=== PATIENT | male | born 1965 | race Hispanic/Latino ===

== ENCOUNTER 2017-10-27 06:35 | Emergency (ER) | payer MEDICARE, MEDICAID ==
[2017-10-27 06:43] VITALS: BMI 27.9
--- NOTE | 2017-10-27 09:19 | CT ---
PROCEDURE: CT HEAD WITHOUT CONTRAST. HISTORY: ? fall r/o ICH and fx COMPARISON: None available. TECHNIQUE: Axial computed tomography images were obtained through the head/brain without intravenous contrast. Radiation dose: Total exam DLP = 942.89 mGy-cm. This CT exam was performed using one or more of the following dose reduction techniques: Automated exposure control, adjustment of the mA and/or kV according to patient size, and/or use of iterative reconstruction technique. FINDINGS: HEMORRHAGE: No intracranial hemorrhage. BRAIN: Normal bolanos-white matter differentiation and density are appreciated throughout the cerebrum and cerebellum with the brainstem appearing unremarkable as well. There is no mass effect. There is no suspicious extra-axial fluid collection and the midline brain anatomy appears diffusely unremarkable. VENTRICLES: Unremarkable. No hydrocephalus. CALVARIUM: No destructive bony lesion or displaced fracture identified including through the skullbase. PARANASAL SINUSES: Unremarkable as visualized. No significant inflammatory changes. MASTOID AIR CELLS: Unremarkable as visualized. No inflammatory changes. OTHER FINDINGS: None. IMPRESSION: Unremarkable unenhanced head CT. No significant interval change compared to prior head CT dated 04/21/2016.
--- NOTE | 2017-10-27 10:11 | ED PDOC ---
Arrival/HPI - General Chief Complaint: Alcohol Ingestion Time Seen by Provider: 10/27/17 07:12 Historian: Patient, EMS - History of Present Illness Narrative History of Present Illness (Text): 10/27/17 10:08 Rishabh Mckeon is a 52 year old male, with no significant past medical history, was brought in by EMS for public intoxication. Patient was found on the floor. Patient admits to drinking. Patient denies any trauma, fever, chills, chest pain , shortness of breath, diarrhea, back pain, neck pain, headache, dizziness, or any other complaints. Symptom Onset: Gradual Symptom Course: Unchanged Activities at Onset: Light Past Medical History - Provider Review Nursing Documentation Reviewed: Yes - Infectious Disease Hx of Infectious Diseases: None - Tetanus Immunization Tetanus Immunization: Unknown - Reproductive Currently Lactating: No - Cardiac Hx Cardiac Disorders: No - Pulmonary Hx Respiratory Disorders: No - Neurological Hx Neurological Disorder: No - HEENT Hx HEENT Disorder: No - Renal Hx Renal Disorder: No - Endocrine/Metabolic Hx Endocrine Disorders: No - Hematological/Oncological Hx Blood Transfusions: No - Integumentary Hx Dermatological Disorder: No - Musculoskeletal/Rheumatological Hx Musculoskeletal Disorders: Yes (avascular necrosis) Hx Arthritis: Yes Hx Back Pain: Yes - Gastrointestinal Hx Gastrointestinal Disorders: No - Genitourinary/Gynecological Hx Genitourinary Disorders: No - Psychiatric Hx Psychophysiologic Disorder: No Hx Substance Use: No - Surgical History Hx Joint Replacement: Yes (LEFT HIP) Hx Orthopedic Surgery: Yes (BACK SX, LEFT HIP REPLACEMENT) - Anesthesia Hx Anesthesia Reactions: No Hx Malignant Hyperthermia: No - Suicidal Assessment Feels Threatened In Home Enviroment: No Family/Social History - Physician Review Nursing Documentation Reviewed: Yes Family/Social History: Unknown Family HX Smoking Status: Heavy Smoker > 10 Cigarettes Daily Hx Alcohol Use: No Hx Substance Use: No Hx Substance Use Treatment: No Allergies/Home Meds Allergies/Adverse Reactions: Allergies acetaminophen [From Tylenol] Allergy (Verified 10/27/17 06:43) URTICARIA Home Medications: Home Meds Medication Instructions Recorded Confirmed Gabapentin [Neurontin] 300 mg PO TID 11/08/15 10/27/17 Oxymorphone HCl [Opana] 40 mg PO BID 11/08/15 10/27/17 Review of Systems - Physician Review All systems were reviewed & negative as marked: Yes - Review of Systems Constitutional: Normal Eyes: Normal ENT: Normal Respiratory: Normal. absent: SOB, Cough Cardiovascular: Normal. absent: Chest Pain, Palpitations Gastrointestinal: Normal. absent: Abdominal Pain Genitourinary Male: Normal. absent: Dysuria, Frequency, Hematuria, Urinary Output Changes Musculoskeletal: Normal. absent: Back Pain, Neck Pain Skin: Normal. absent: Rash Neurological: Normal. absent: Headache Endocrine: Normal Hemo/Lymphatic: Normal Psychiatric: Normal Physical Exam Vital Signs Reviewed: Yes Vital Signs Temp Pulse Resp BP Pulse Ox 10/27/17 12:00 98.6 F 72 18 135/75 98 10/27/17 10:00 72 18 129/79 98 10/27/17 08:04 67 17 113/74 99 10/27/17 06:47 98.4 F 63 16 145/97 H 97 Temperature: Afebrile Blood Pressure: Normal Pulse: Regular Respiratory Rate: Normal Appearance: Positive for: Well-Appearing, Non-Toxic, Comfortable Pain Distress: None Mental Status: Positive for: Alert and Oriented X 3 - Systems Exam Head: Present: Atraumatic, Normocephalic Pupils: Present: PERRL Extroacular Muscles: Present: EOMI Conjunctiva: Present: Normal Mouth: Present: Moist Mucous Membranes Neck: Present: Normal Range of Motion Respiratory/Chest: Present: Clear to Auscultation, Good Air Exchange. No: Respiratory Distress, Accessory Muscle Use Cardiovascular: Present: Regular Rate and Rhythm, Normal S1, S2. No: Murmurs Abdomen: Present: Normal Bowel Sounds. No: Tenderness, Distention, Peritoneal Signs Back: Present: Normal Inspection Upper Extremity: Present: Normal Inspection. No: Cyanosis, Edema Lower Extremity: Present: Normal Inspection. No: Edema Neurological: Present: GCS=15, CN II-XII Intact, Speech Normal Skin: Present: Warm, Dry, Normal Color. No: Rashes Psychiatric: Present: Alert, Oriented x 3, Normal Insight, Normal Concentration Medical Decision Making ED Course and Treatment: 10/27/17 10:11 Impression: 52 year old male brought in by EMS for public intoxication. Plan: -- Reassess and disposition Progress Notes: - RAD Interpretation Radiology Orders: 10/27/17 07:13 HEAD W/O CONTRAST [CT] Stat - Scribe Statement The provider has reviewed the documentation as recorded by the Laura Reis All medical record entries made by the Scribe were at my direction and personally dictated by me. I have reviewed the chart and agree that the record accurately reflects my personal performance of the history, physical exam, medical decision making, and the department course for this patient. I have also personally directed, reviewed, and agree with the discharge instructions and disposition. Disposition/Present on Arrival - Present on Arrival Any Indicators Present on Arrival: No History of DVT/PE: No History of Uncontrolled Diabetes: No Urinary Catheter: No History of Decub. Ulcer: No History Surgical Site Infection Following: None - Disposition Have Diagnosis and Disposition been Completed?: Yes Diagnosis: Alcohol intoxication Disposition: HOME/ ROUTINE Disposition Time: 12:30 Condition: IMPROVED Discharge Instructions (ExitCare): Alcohol Abuse and Alcoholism (DC) Additional Instructions: Thank you for letting us take care of you today. The emergency medical care you received today was directed at your acute symptoms. If you were prescribed any medication, please fill it and take as directed. It may take several days for your symptoms to resolve. Return to the Emergency Department if your symptoms worsen, do not improve, or if you have any other problems. Please contact your doctor or call one of the physicians/clinics you have been referred to that are listed on the Patient Visit Information form that is included in your discharge packet. Bring any paperwork you were given at discharge with you along with any medications you are taking to your follow up visit. Our treatment cannot replace ongoing medical care by a primary care provider (PCP) outside of the emergency department. Thank you for allowing the [facility] team to be part of your care today. Follow up with your primary care doctor next week for re-evaluation and further management. Referrals: [facility]Grinder Maddie Req, [Family Provider] - Follow up with primary Forms: [employer] ([place])
[2017-10-27 11:26] VITALS: PULSE 72; RESP 18; O2SAT 98
[2017-10-27 12:55] VITALS: BP 135/75; TEMP 98.6
== END 2017-10-27 12:58 | disposition home or self-care (01) ==
LOC: ED 06:35
DX: F10.129 Alcohol abuse with intoxication, unspecified (principal); Y90.9 Presence of alcohol in blood, level not specified

== ENCOUNTER 2017-11-02 12:00 | Emergency (ER) | payer MEDICARE, MEDICAID ==
[2017-11-02 12:12] VITALS: BMI 27.1
[2017-11-02 12:20] VITALS: BP 116/54; PULSE 83; RESP 18; TEMP 98.1; O2SAT 93
--- NOTE | 2017-11-02 13:02 | ED PDOC ---
Arrival/HPI - General Chief Complaint: Lower Extremity Problem/Injury Time Seen by Provider: 11/02/17 12:22 Historian: Patient - History of Present Illness Narrative History of Present Illness (Text): 11/02/17 13:01 52 year old male, with past medical history of arthritis and left hip surgery due to avascular necrosis, presents to the Emergency department complaining of left hip pain s/p fall from bed this morning. Patient is able to ambulate with no difficulty and denies any head injury. Patient denies any loss of consciousness or any symptoms prior to fall. Patient denies any fever, chills, nausea, vomiting, diarrhea, abdominal pain, chest pain, shortness of breath or any other complaints. PMD: Dr. Escobedo Time/Duration: 4-6 hours Symptom Onset: Sudden Symptom Course: Unchanged Activities at Onset: Sleeping Context: Home Past Medical History - Provider Review Nursing Documentation Reviewed: Yes - Infectious Disease Hx of Infectious Diseases: None - Tetanus Immunization Tetanus Immunization: Unknown - Reproductive Currently Lactating: No - Cardiac Hx Cardiac Disorders: No Other/Comment: Loop recorder on L chest - Pulmonary Hx Respiratory Disorders: No - Neurological Hx Neurological Disorder: No - HEENT Hx HEENT Disorder: No - Renal Hx Renal Disorder: No - Endocrine/Metabolic Hx Endocrine Disorders: No - Hematological/Oncological Hx Blood Transfusions: No - Integumentary Hx Dermatological Disorder: No - Musculoskeletal/Rheumatological Hx Musculoskeletal Disorders: Yes (avascular necrosis) Hx Arthritis: Yes Hx Back Pain: Yes Other/Comment: avascular necrosis - Gastrointestinal Hx Gastrointestinal Disorders: No - Genitourinary/Gynecological Hx Genitourinary Disorders: No - Psychiatric Hx Psychophysiologic Disorder: No Hx Substance Use: No - Surgical History Hx Joint Replacement: Yes (LEFT HIP) Hx Orthopedic Surgery: Yes (BACK SX, LEFT HIP REPLACEMENT) - Anesthesia Hx Anesthesia Reactions: No Hx Malignant Hyperthermia: No - Suicidal Assessment Feels Threatened In Home Enviroment: No Family/Social History - Physician Review Nursing Documentation Reviewed: Yes Family/Social History: No Known Family HX Smoking Status: Heavy Smoker > 10 Cigarettes Daily Hx Alcohol Use: Yes Frequency of alcohol use: Socially Hx Substance Use: No Hx Substance Use Treatment: No Allergies/Home Meds Allergies/Adverse Reactions: Allergies acetaminophen [From Tylenol] Allergy (Verified 10/27/17 06:43) URTICARIA Home Medications: Home Meds Medication Instructions Recorded Confirmed Gabapentin [Neurontin] 300 mg PO TID 11/08/15 11/02/17 Oxymorphone HCl [Opana] 40 mg PO TID 11/08/15 11/02/17 oxyCODONE [oxyCODONE Immediate 1 tab PO TID PRN 11/02/17 11/02/17 Release Tab] Review of Systems - Physician Review All systems were reviewed & negative as marked: Yes - Review of Systems Constitutional: Normal. absent: Fevers Eyes: Normal ENT: Normal Respiratory: Normal. absent: SOB Cardiovascular: Normal. absent: Chest Pain Gastrointestinal: Normal. absent: Abdominal Pain, Diarrhea, Nausea, Vomiting Genitourinary Male: Normal Musculoskeletal: Other (left hip discomfort) Skin: Normal Neurological: Normal Endocrine: Normal Hemo/Lymphatic: Normal Psychiatric: Normal Physical Exam Vital Signs Reviewed: Yes Vital Signs Temp Pulse Resp BP Pulse Ox 11/02/17 12:19 98.1 F 83 18 116/54 L 93 L Temperature: Afebrile Blood Pressure: Normal Pulse: Regular Respiratory Rate: Normal Appearance: Positive for: Well-Appearing, Non-Toxic, Comfortable Pain Distress: Mild Mental Status: Positive for: Alert and Oriented X 3 - Systems Exam Head: Present: Atraumatic, Normocephalic Pupils: Present: PERRL Extroacular Muscles: Present: EOMI Conjunctiva: Present: Normal Mouth: Present: Moist Mucous Membranes Neck: Present: Normal Range of Motion Respiratory/Chest: Present: Clear to Auscultation, Good Air Exchange. No: Respiratory Distress, Accessory Muscle Use Cardiovascular: Present: Regular Rate and Rhythm, Normal S1, S2. No: Murmurs Abdomen: Present: Normal Bowel Sounds. No: Tenderness, Distention, Peritoneal Signs Back: Present: Normal Inspection Upper Extremity: Present: Normal Inspection. No: Cyanosis, Edema Lower Extremity: Present: Tenderness (diffused left hip tenderness). No: Edema Neurological: Present: GCS=15, CN II-XII Intact, Speech Normal Skin: Present: Warm, Dry, Normal Color. No: Rashes Psychiatric: Present: Alert, Oriented x 3, Normal Insight, Normal Concentration Medical Decision Making ED Course and Treatment: 11/02/17 13:03 Impression: 52 year old male presents to the Emergency department for left hip discomfort. Plan: -- X-Ray of left hip -- Reassess and disposition Prior Visits: Notes and results from previous visits were reviewed. On 04/21/16 patient was seen in the Emergency department for bilateral hip discomfort and headahce. Patient was discharged home after treatment. Progress Notes: 11/02/17 14:08 X-ray of left hip reviewed by radiologist, shows no acute findings. 11/02/17 14:40 X-ray of left femur reviewed by radiologist, shows no unremarkable radiographs of the left femur. 11/02/17 15:06 CT of left lower extremity reviewed by radiologist, shows negative findings. 11/02/17 15:34 Discussed radiology results with patient, who is aware that no fracture was located. Patient now states he fell one week ago. Patient then proceeds to throw himself onto the floor. The incident was witnessed by nursing staff. Patient will be discharged home with follow-up instructions. - RAD Interpretation Radiology Orders: 11/02/17 12:30 Hip Left [HIP MIN 2V W/ PELVIS LT] [RAD] Stat 11/02/17 13:50 Femur Left [FEMUR MIN 2 VIEWS LT] [RAD] Stat 11/02/17 13:54 EXT LOWER W/O CONTRAST LEFT [CT] Stat - Medication Orders Current Medication Orders: Discontinued Medications Morphine Sulfate (Morphine) 4 mg IM STAT STA Stop: 11/02/17 13:54 Last Admin: 11/02/17 14:03 Dose: 4 mg MAR Pain Assessment Document 11/02/17 14:03 [facility]CS (Rec: 11/02/17 14:03 [id number] Pain Reassessment Is this a pain reassessment? No Sleep Is patient sleeping during reassessment? No Presence of Pain Presence of Pain Yes Pain Scale Used Pain Scale Used Numeric Location Left, Right or Bilateral Left Pain Location Body Site Hip Description Description Constant Intensity of Pain at present 10 Pain Behavior Moaning Irritability Restlessness Facial Grimacing Aggravating Factors ADL's IM Administration Charges Document 11/02/17 14:03 OCS (Rec: 11/02/17 14:03 OCS [id number]) Injection Site MAR Injection Site Left Deltoid Charges for Administration # of IM Administrations 1 - Scribe Statement The provider has reviewed the documentation as recorded by the Scribe Genie Land. All medical record entries made by the Scribe were at my direction and personally dictated by me. I have reviewed the chart and agree that the record accurately reflects my personal performance of the history, physical exam, medical decision making, and the department course for this patient. I have also personally directed, reviewed, and agree with the discharge instructions and disposition. Disposition/Present on Arrival - Present on Arrival Any Indicators Present on Arrival: No History of DVT/PE: No History of Uncontrolled Diabetes: No Urinary Catheter: No History of Decub. Ulcer: No History Surgical Site Infection Following: None - Disposition Have Diagnosis and Disposition been Completed?: Yes Diagnosis: Contusion, hip Disposition: HOME/ ROUTINE Disposition Time: 14:50 Condition: GOOD Discharge Instructions (ExitCare): Contusion (DC) Additional Instructions: Thank you for letting us take care of you today. The emergency medical care you received today was directed at your acute symptoms. If you were prescribed any medication, please fill it and take as directed. It may take several days for your symptoms to resolve. Return to the Emergency Department if your symptoms worsen, do not improve, or if you have any other problems. Please contact your doctor or call one of the physicians/clinics you have been referred to that are listed on the Patient Visit Information form that is included in your discharge packet. Bring any paperwork you were given at discharge with you along with any medications you are taking to your follow up visit. Our treatment cannot replace ongoing medical care by a primary care provider (PCP) outside of the emergency department. Thank you for allowing the [facility] team to be part of your care today. Follow up with your doctor next week for re-evaluation and further management. Referrals: Macy Escobedo MD [Primary Care Provider] - Follow up with primary Forms: [employer] ([place])
[2017-11-02] MEDS ORDERED: Morphine 4 mg/ml ISec IM STA (13:53)
--- NOTE | 2017-11-02 14:01 | RAD ---
PROCEDURE: Left Hip X-ray Radiographs. HISTORY: s/p fall - r/o fracture COMPARISON: None. FINDINGS: BONES: Normal. No fracture. JOINTS: There is a left hip prosthesis. There is no fracture or loosening SOFT TISSUES: Normal. OTHER FINDINGS: None. IMPRESSION: No acute findings
--- NOTE | 2017-11-02 14:38 | RAD ---
PROCEDURE: Left Femur Radiographs. HISTORY: r/o fx COMPARISON: None. TECHNIQUE: AP and Lateral Radiographs of the left femur. FINDINGS: FEMUR: Normal. No fracture. SOFT TISSUES: Normal. OTHER FINDINGS: Left hip prosthesis IMPRESSION: Unremarkable radiographs of the left femur.
--- NOTE | 2017-11-02 14:55 | CT ---
PROCEDURE: CT of the left hip without contrast HISTORY: s/p fall- c/o pain to left hip/femur area - r/o fx COMPARISON: TECHNIQUE: CT of the left hip was performed with sagittal and coronal reconstruction FINDINGS: There is a left hip prosthesis. There is no fracture, loosening or dislocation. There is no soft tissue hemorrhage or edema. IMPRESSION: Negative study
== END 2017-11-02 15:22 | disposition home or self-care (01) ==
LOC: ED 12:00
DX: S70.02XA Contusion of left hip, initial encounter (principal); W06.XXXA Fall from bed, initial encounter; Y92.003 Bedroom of unspecified non-institutional (private) residence as the place of occurrence of the external cause; F17.210 Nicotine dependence, cigarettes, uncomplicated
CPT/HCPCS: 73502; 73552; 73700; 96372; 99283; J2270

== ENCOUNTER 2018-02-15 19:31 | Inpatient (IN) | payer MEDICARE, MEDICAID ==
[2018-02-15] MEDS ORDERED: Morphine 4 mg/ml ISec IVP STA (19:45)
--- NOTE | 2018-02-15 19:52 | ED PDOC ---
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 Per bystanders he had a syncopal episode but returned quickly to baseline. Patient unable to clarify if he felt weak, lightheaded, dizzy, or if he had any other symptoms. He states that he got less volume taken off at dialysis than usual because he was at the center near closing time. Of note, he usually goes to dialysis earlier in the day, however today he was delayed because he also had a similar syncopal episode this morning and was seen at [facility], reports that he had a CT scan done and was discharged. He states that this morning "I was eating and all of a sudden I think I went down". Currently his only complaint is back pain, which he states is not new. Past Medical History - Provider Review Nursing Documentation Reviewed: Yes - Travel History Have you recently traveled outside [place] w/in the past 3 mons?: No - Infectious Disease Hx of Infectious Diseases: None - Tetanus Immunization Tetanus Immunization: Unknown - Reproductive Currently Lactating: No - Cardiac Hx Cardiac Disorders: No Other/Comment: Loop recorder on L chest - Pulmonary Hx Respiratory Disorders: No - Neurological Hx Neurological Disorder: No - HEENT Hx HEENT Disorder: No - Renal Hx Renal Disorder: No - Endocrine/Metabolic Hx Endocrine Disorders: No - Hematological/Oncological Hx Blood Transfusions: No - Integumentary Hx Dermatological Disorder: No - Musculoskeletal/Rheumatological Hx Musculoskeletal Disorders: Yes (avascular necrosis) Hx Arthritis: Yes Hx Back Pain: Yes Other/Comment: avascular necrosis - Gastrointestinal Hx Gastrointestinal Disorders: No - Genitourinary/Gynecological Hx Genitourinary Disorders: No - Psychiatric Hx Psychophysiologic Disorder: No Hx Substance Use: No - Surgical History Hx Joint Replacement: Yes (LEFT HIP) Hx Orthopedic Surgery: Yes (BACK SX, LEFT HIP REPLACEMENT) - Anesthesia Hx Anesthesia Reactions: No Hx Malignant Hyperthermia: No - Suicidal Assessment Feels Threatened In Home Enviroment: No Family/Social History - Physician Review Nursing Documentation Reviewed: Yes Family/Social History: Unknown Family HX Smoking Status: Heavy Smoker > 10 Cigarettes Daily Hx Alcohol Use: Yes Hx Substance Use: No Hx Substance Use Treatment: No Allergies/Home Meds Allergies/Adverse Reactions: Allergies acetaminophen [From Tylenol] Allergy (Verified 02/15/18 19:49) URTICARIA Home Medications: Home Meds Medication Instructions Recorded Confirmed Gabapentin [Neurontin] 300 mg PO TID 11/08/15 02/15/18 Oxymorphone HCl [Opana] 40 mg PO TID 11/08/15 02/15/18 oxyCODONE [oxyCODONE Immediate 1 tab PO TID PRN 11/02/17 02/15/18 Release Tab] Apixaban [Eliquis] 5 mg PO BID 02/16/18 02/16/18 Review of Systems - Physician Review All systems were reviewed & negative as marked: Yes - Review of Systems Constitutional: Normal Eyes: absent: Vision Changes Respiratory: Normal Cardiovascular: Normal Gastrointestinal: Normal Musculoskeletal: Back Pain Skin: Normal Neurological: Dizziness Psychiatric: Normal Physical Exam Vital Signs Reviewed: Yes Vital Signs Temp Pulse Resp BP Pulse Ox 02/16/18 01:33 75 02/16/18 01:20 71 18 172/68 H 97 02/15/18 19:44 98 F 66 19 169/85 H 98 Temperature: Afebrile Blood Pressure: Hypertensive Pulse: Regular Respiratory Rate: Normal Appearance: Positive for: Non-Toxic Pain Distress: Other (Occasional spasm/jerking of body when patient experiences back pain) Mental Status: Positive for: Alert and Oriented X 3 - Systems Exam Head: Present: Contusion, Swelling, Laceration (occipital region) Pupils: Present: PERRL Extroacular Muscles: Present: EOMI Conjunctiva: Present: Normal Mouth: Present: Moist Mucous Membranes Neck: Present: Paraspinal Tenderness (R side), Other (cervical collar in place) . No: MIDLINE TENDERNESS Respiratory/Chest: Present: Clear to Auscultation, Tender to Palpation (R lower lateral ribs) Cardiovascular: Present: Regular Rate and Rhythm Abdomen: No: Tenderness, Distention Back: Present: Normal Inspection, Paraspinal Tenderness (overlying R trapezius) . No: Midline Tenderness Upper Extremity: Present: Normal Inspection Lower Extremity: Present: Normal Inspection Neurological: Present: GCS=15, Speech Normal Skin: Present: Warm, Dry Psychiatric: Present: Alert, Oriented x 3 Medical Decision Making ED Course and Treatment: 02/15/2018 21:[address] FINDINGS: Brain: Unremarkable. Ventricles: Unremarkable. Bones/joints: Unremarkable. No acute fracture. Soft tissues: Right parietal scalp laceration with underlying subgaleal hematoma and a small gascontaining subgaleal fluid collection. Small left parietal subgaleal hematoma. Posterior bilateral scalp subcutaneous soft tissue swelling and stranding, in keeping with traumatic injury. Sinuses: Unremarkable as visualized. Mastoid air cells: Unremarkable as visualized. IMPRESSION: No acute intracranial pathology or traumatic injury. Scalp injury as above. Dicator: James Martinez MD 02/15/2018 22:[address] IMPRESSION: Mild degenerative changes with no acute traumatic osseous injury in cervical spine. Right occipital scalp hematoma with punctate gas focus suggesting associated laceration. Dictator: Valentino Salamanca MD 02/15/2018 22:[address] IMPRESSION: Patchy right middle lobe density suggesting airspace disease and atelectasis. Both pulmonary contusion and pneumonia should be considered. Right IJ catheter tip at atriocaval junction. Dictator: Valentino Salamanca MD 02/15/18 22:30 Patient to be admitted for further evaluation of syncope. Case discussed with Dr. García, who accepts patient into service and requests neurology consult Dr. Puente. 02/15/18 23:00 Attempted to irrigate patient's head wound, however patient refused to have performed. Patient was offered to numb area with Lidocaine, which patient also refused and only wants narcotics given. Patient refusing any type of laceration repair at this time. Patient later reported that laceration is old, from several weeks ago when he had yet another fall, and "it must have opened up again when I fell today". Still declines any repair. - Lab Interpretations Lab Results: 02/15/18 21:35 02/15/18 21:35 Lab Results 02/15/18 21:35: Blood Type A POSITIVE, Antibody Screen Negative, BBK History Checked No verified bt 02/15/18 21:35: PT 13.2 H, INR 1.15 H, APTT 25.6 02/15/18 21:35: Sodium 140, Potassium 4.2, Chloride 102, Carbon Dioxide 25, Anion Gap 18, BUN 32 H, Creatinine 7.3 H, Est GFR ( Amer) 10, Est GFR ( Non-Af Amer) 8, Random Glucose 99, Calcium 8.4, Total Bilirubin 0.4, AST 20, ALT 16, Alkaline Phosphatase 75, Total Protein 7.1, Albumin 3.8, Globulin 3.3, Albumin/Globulin Ratio 1.2 02/15/18 21:35: WBC 11.0 D, RBC 3.28 L, Hgb 9.1 L, Hct 29.1 L, MCV 88.7, MCH 27.7, MCHC 31.3, RDW 18.4 H, Plt Count 156, MPV 10.6, Gran % 79.7 H, Lymph % ( Auto) 11.0 L, Vance % (Auto) 7.7 H, Eos % (Auto) 1.3 L, Baso % (Auto) 0.3, Gran # 8.76 H, Lymph # (Auto) 1.2, Vance # (Auto) 0.9 H, Eos # (Auto) 0.1, Baso # ( Auto) 0.03 02/15/18 20:40: POC Glucose (mg/dL) 96 - RAD Interpretation Radiology Orders: 02/15/18 19:45 CERVICAL SPINE W/O CONTRAST [CT] Stat CHEST W/O CONTRAST [CT] Stat HEAD W/O CONTRAST [CT] Stat - EKG Interpretation EKG Interpretation (Text): 22:18- NSR rate 64bpm, QTc prolonged at 480, normal axis, no ST/T changes, QRS normal, OK normal Type: 12 lead EKG - Medication Orders Current Medication Orders: Discontinued Medications Morphine Sulfate (Morphine) 4 mg IM STAT STA Stop: 02/15/18 20:20 Last Admin: 02/15/18 20:21 Dose: 4 mg MAR Pain Assessment Document 02/15/18 20:21 (Rec: 02/15/18 21:26 [id number]) Pain Reassessment Is this a pain reassessment? Yes Sleep Is patient sleeping during reassessment? No Presence of Pain Presence of Pain Yes Pain Scale Used Pain Scale Used Numeric Location Pain Location Body Gis Consultant Neck Back Description Description Constant Pain Behavior Irritability Withdrawal from Touch Facial Grimacing Aggravating Factors Contant IM Administration Charges Document 02/15/18 20:21 (Rec: 02/15/18 21:26 [id number]) Injection Site MAR Injection Site Right Deltoid Charges for Administration # of IM Administrations 1 Re-Assess: CONTRERAS Pain Assessment Document 02/15/18 21:21 VY (Rec: 02/15/18 21:27 VY [id number]) Pain Reassessment Is this a pain reassessment? Yes Sleep Is patient sleeping during reassessment? No Presence of Pain Presence of Pain Yes Pain Scale Used Pain Scale Used Numeric Location Pain Location Body Gis Consultant Neck Description Description Intermittent Intensity of Pain at present 2 Disposition/Present on Arrival - Present on Arrival Any Indicators Present on Arrival: No History of DVT/PE: No History of Uncontrolled Diabetes: No Urinary Catheter: No History Surgical Site Infection Following: None - Disposition Have Diagnosis and Disposition been Completed?: Yes Diagnosis: Syncope, Scalp hematoma Disposition Time: 22:47 Condition: FAIR
[2018-02-15] MEDS ORDERED: Morphine 4 mg/ml ISec IM STA (20:19)
[2018-02-15 21:43] LABS: BASO # 0.03 K/mm3 (0.0-2.0); BASO % 0.3 % (0.0-3.0); EOS # 0.1 (0.0-0.7); EOS % 1.3 % (1.5-5.0); GRAN # 8.76 (1.4-6.5); GRAN % 79.7 % (50.0-68.0); HEMOGLOBIN 9.1 g/dL (14.0-18.0); LYMPH # 1.2 (1.2-3.4); MEAN CELL VOLUME 88.7 fl (80.0-105.0); MEAN CORPUSCULAR HEMOGLOBIN 27.7 pg (25.0-35.0); MEAN CORPUSCULAR HGB CONC 31.3 g/dl (31.0-37.0); MEAN PLATELET VOLUME 10.6 fl (7.0-11.0); MONO # 0.9 (0.1-0.6); MONO % 7.7 % (1.0-6.0); RBC 3.28 10^6/uL (3.5-6.1); RED CELL DISTRIBUTION WIDTH 18.4 % (11.5-14.5)
[2018-02-15 21:54] LABS: INR 1.15 (0.93-1.08); PARTIAL THROMBOPLASTIN TIME 25.6 Seconds (25.1-36.5); PROTHROMBIN TIME 13.2 SECONDS (9.4-12.5)
[2018-02-15 21:59] LABS: ALB/GLOB RATIO 1.2 (1.1-1.8); ALBUMIN 3.8 g/dL (3.0-4.8); CALCIUM 8.4 mg/dL (8.4-10.5)
[2018-02-16 03:11] VITALS: BMI 23.7
[2018-02-16] MEDS ORDERED: Morphine 2 mg/ml ISec IVP STA ×2 (03:12→06:36)
--- NOTE | 2018-02-16 04:07 | CP.PCM.PN ---
Subjective - Date & Time of Evaluation Date of Evaluation: 02/16/18 Time of Evaluation: 04:07 - Subjective Subjective: # 24 angiocath was inserted in right hand. Objective - Vital Signs/Intake and Output Vital Signs (last 24 hours): Temp Pulse Resp BP Pulse Ox 98.4 F 65 20 146/82 97 02/16/18 02:56 02/16/18 02:56 02/16/18 02:56 02/16/18 02:56 02/16/18 02:00 - Labs Labs: PT 13.2 SECONDS (9.4-12.5) H 02/15/18 21:35 INR 1.15 (0.93-1.08) H 02/15/18 21:35 APTT 25.6 Seconds (25.1-36.5) 02/15/18 21:35
--- NOTE | 2018-02-16 09:15 | CT ---
Date of service: 02/15/2018 PROCEDURE: CT HEAD WITHOUT CONTRAST. HISTORY: head injury COMPARISON: 10/27/2017 TECHNIQUE: Axial computed tomography images were obtained through the head/brain without intravenous contrast. Radiation dose: Total exam DLP = 996 mGy-cm. This CT exam was performed using one or more of the following dose reduction techniques: Automated exposure control, adjustment of the mA and/or kV according to patient size, and/or use of iterative reconstruction technique. FINDINGS: HEMORRHAGE: There is a large scalp hematoma posteriorly. There is no intracranial hemorrhage. No skull fracture BRAIN: No mass effect or edema. No atrophy or chronic microvascular ischemic changes. VENTRICLES: Unremarkable. No hydrocephalus. CALVARIUM: Unremarkable. PARANASAL SINUSES: Unremarkable as visualized. No significant inflammatory changes. MASTOID AIR CELLS: Unremarkable as visualized. No inflammatory changes. OTHER FINDINGS: The report concurs with the preliminary [facility] report IMPRESSION: There is a large scalp hematoma posteriorly. There is no intracranial hemorrhage. No skull fracture
--- NOTE | 2018-02-16 09:18 | CT ---
Date of service: 02/15/2018 PROCEDURE: CT Cervical Spine without contrast HISTORY: neck injury COMPARISON: None available. TECHNIQUE: Axial computed tomography images were obtained of the cervical spine without the use of intravenous contrast. Coronal and sagittal reformatted images were created and reviewed. Radiation dose: Total exam DLP = 526 mGy-cm. This CT exam was performed using one or more of the following dose reduction techniques: Automated exposure control, adjustment of the mA and/or kV according to patient size, and/or use of iterative reconstruction technique. FINDINGS: VERTEBRAE: No fracture. Normal alignment. No destructive bony lesion. 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 Discs heights are grossly preserved. PARASPINAL SOFT TISSUES: Unremarkable. OTHER FINDINGS: The report concurs with the preliminary [facility] report IMPRESSION: No acute findings
--- NOTE | 2018-02-16 09:21 | CT ---
Date of service: 02/15/2018 PROCEDURE: CT Chest without contrast HISTORY: rib pain COMPARISON: None. TECHNIQUE: Contiguous axial images were obtained through the chest without intravenous contrast enhancement. Sagittal and coronal reconstructions were performed. Radiation dose (DLP): 785 mGy-cm. This CT exam was performed using one or more of the following dose reduction techniques: Automated exposure control, adjustment of the mA and/or kV according to patient size, and/or use of iterative reconstruction technique. FINDINGS: LUNGS: There is a focal area of consolidation in the right middle lobe consistent with pneumonia. Air bronchograms are seen. MEDIASTINUM: Unremarkable thoracic aorta. No aneurysm. Normal sized heart. Main pulmonary artery unremarkable. No vascular congestion. No lymphadenopathy. PLEURA: No pleural fluid. No pneumothorax. BONES: No fracture. No destructive lesion. UPPER ABDOMEN: Grossly unremarkable. OTHER FINDINGS: The report concurs with the preliminary [facility] report IMPRESSION: Focal area of consolidation in the right middle lobe consistent with pneumonia
[2018-02-16] MEDS: oxyCODONE 20 mg ER Tab (oxyCONTIN) PO SCH ×2 (13:02→21:43)
--- NOTE | 2018-02-16 21:02 | CARD ---
APPROVED REPORT Date of service: 02/15/2018 EKG Measurement Heart [id number] <Conclusion> Normal sinus rhythm Prolonged QT Abnormal ECG
--- NOTE | 2018-02-17 00:24 | CON ---
DATE: 02/16/2018 HISTORY OF PRESENT ILLNESS: This is a 52-year-old male who has renal failure secondary to amyloidosis. The patient came out of his store, felt wired, fell down, hit his head, developed hematoma on the back of the head and the patient had syncopal episode, no seizure. The patient also complained of numbness in the legs. I was called to evaluate the patient. PAST MEDICAL HISTORY: Amyloidosis, renal failure, arthritis, and back pain. ALLERGIES: TO ACETAMINOPHEN. HOME MEDICATIONS: Gabapentin, oxycodone, and apixaban. REVIEW OF SYSTEMS: A 10-point review of systems was negative. PHYSICAL EXAMINATION: VITAL SIGNS: Blood pressure 169/85. HEENT: Normocephalic, atraumatic. NECK: Supple. NEUROLOGIC: Awake, orientated to self. Cranial nerves II through XII were tested. Pupils reactive. EOM intact. Visual ruiz full. No facial asymmetry. Tongue midline. Motor examination, moves all the extremities equally. Tone normal. Deep tendon reflexes 1+, both plantars are downgoing. Sensory appears intact. Cerebellar, gait deferred. LABORATORY DATA: WBC 11, hemoglobin 9.1, hematocrit 29.1, platelets 156. Sodium 140, potassium 4.2, chloride 102, CO2 of 25, glucose 99, BUN 32, creatinine 7.3. IMPRESSION: Syncope and fall secondary to above and had head trauma without loss of consciousness. CAT scan of the head was done, which was unremarkable except scalp hematoma. CT cervical spine was normal. The patient also gets cramps in the legs. Continue gabapentin. We will follow up. Alberto Puente MD
--- NOTE | 2018-02-17 02:42 | CON ---
DATE: 02/16/2018 REASON FOR CONSULTATION: Anemia of chronic kidney disease, ESRD, status post fall. HISTORY OF PRESENT ILLNESS: A 52-year-old male known to me from outpatient hemodialysis. The patient reports he went for dialysis yesterday. He had a big ____ in the back of his head. He went to the emergency room in [place]. He went back for dialysis for 2 hours. After dialysis, he tripped on the side walk and fell. He had some scalp laceration. He was bleeding profusely when he came to the emergency room. The patient has a history of dependence on pain killers. PAST MEDICAL AND SURGICAL HISTORY: Chronic pain, narcotic pain dependence, arthritis, spinal stenosis, ESRD, recent initiation of dialysis, amyloidosis as per kidney biopsy at [facility]. FAMILY HISTORY: Noncontributory. SOCIAL HISTORY: Positive smoking, positive alcohol use, no substance abuse. ALLERGIES: TYLENOL. MEDICATIONS AT HOME: Gabapentin 300 three times a day,Opana 40 t.i.d., oxycodone 1 tablet t.i.d. p.r.n., Eliquis 5 b.i.d. REVIEW OF SYSTEMS: All systems are reviewed, pertinent positives as mentioned in history of presenting illness, rest unremarkable. PHYSICAL EXAMINATION: GENERAL: Middle-aged male lying in bed, in no acute distress at this time. VITAL SIGNS: Blood pressure 128/64, heart rate 65, respiratory rate 19, temperature 99. HEENT: Normocephalic, atraumatic, positive pallor. NECK: Supple, no JVD. LUNGS: Bilateral equal air entry, bilateral equal expansion, no rales. CARDIAC: S1, S2, regular rate and rhythm, no murmur, no rub. ABDOMEN: Soft, nondistended, nontender, bowel sounds present. EXTREMITIES: No lower extremity edema. LABORATORY DATA: WBC 11, hemoglobin 9, hematocrit 29, platelets 156. Sodium 140, potassium 4.2, chloride 102, CO2 of 25, BUN 32, creatinine 7.3, glucose 99, calcium 8.4, AST 20, ALT 16, albumin 3.8. CURRENT MEDICATIONS: Eliquis 5 b.i.d., gabapentin 300 mg 3 times a day, oxycodone. ASSESSMENT AND PLAN: 1. Status post fall, scalp laceration. 2. Right middle lobe pneumonia on CT scan. 3. Head CT and cervical spine CT normal. 4. End stage renal disease. 5. Anemia of chronic disease. 6. Biopsy-proven amyloidosis, type A. PLAN 1. Limit narcotics. 2. Next dialysis on Sunday. 3. Hematology-Oncology evaluation. Thank you for the courtesy of this consultation. Mary Jeffers MD
[2018-02-17] MEDS: oxyCODONE 20 mg ER Tab (oxyCONTIN) PO SCH ×3 (05:06→21:24)
[2018-02-17 05:07] LABS: IRON 45 ug/dL (45-180)
[2018-02-17 05:17] LABS: % IRON SATURATION 19 % (20-55); TOTAL IRON BINDING CAPACITY 234 ug/dL (261-462)
[2018-02-17 05:27] LABS: ALB/GLOB RATIO 1.2 (1.1-1.8); ALBUMIN 3.5 g/dL (3.0-4.8); CALCIUM 7.9 mg/dL (8.4-10.5)
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
[2018-02-17 05:45] LABS: BASO # 0.04 K/mm3 (0.0-2.0); BASO % 0.5 % (0.0-3.0); EOS # 0.4 (0.0-0.7); EOS % 4.1 % (1.5-5.0); GRAN # 5.09 (1.4-6.5); GRAN % 58.6 % (50.0-68.0); HEMOGLOBIN 8.3 g/dL (14.0-18.0); LYMPH # 2.4 (1.2-3.4); LYMPH % 27.9 % (22.0-35.0); MEAN CELL VOLUME 90.3 fl (80.0-105.0); MEAN CORPUSCULAR HEMOGLOBIN 27.8 pg (25.0-35.0); MEAN CORPUSCULAR HGB CONC 30.7 g/dl (31.0-37.0); MEAN PLATELET VOLUME 11.1 fl (7.0-11.0); MONO # 0.8 (0.1-0.6); MONO % 8.9 % (1.0-6.0); RBC 2.99 10^6/uL (3.5-6.1); RED CELL DISTRIBUTION WIDTH 18.4 % (11.5-14.5); WHITE BLOOD COUNT 8.7 10^3/ul (4.5-11.0)
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
--- NOTE | 2018-02-17 09:16 | CT ---
Date of service: 02/17/2018 PROCEDURE: CT HEAD WITHOUT CONTRAST. HISTORY: s/p head trauma, with acute jerking movements COMPARISON: 02/15/2018 TECHNIQUE: Axial computed tomography images were obtained through the head/brain without intravenous contrast. Radiation dose: Total exam DLP = 1056 mGy-cm. This CT exam was performed using one or more of the following dose reduction techniques: Automated exposure control, adjustment of the mA and/or kV according to patient size, and/or use of iterative reconstruction technique. FINDINGS: HEMORRHAGE: No intracranial hemorrhage. BRAIN: No mass effect or edema. No atrophy or chronic microvascular ischemic changes. VENTRICLES: Unremarkable. No hydrocephalus. CALVARIUM: The posterior scalp hematoma has slightly decreased in size. PARANASAL SINUSES: Unremarkable as visualized. No significant inflammatory changes. MASTOID AIR CELLS: Unremarkable as visualized. No inflammatory changes. OTHER FINDINGS: The report concurs with the preliminary [facility] report IMPRESSION: No evidence of intracranial hemorrhage
--- NOTE | 2018-02-17 09:17 | HP ---
CHIEF COMPLAINT: Dizziness, syncope, trauma. HISTORY OF PRESENT ILLNESS: Mr. Rishabh Mckeon is a 52-year-old male with past medical history of amyloidosis. renal failure, getting dialysis Sunday, Sunday, Sunday. He got his dialysis just completed and went to the store to get food. After he came out of the store and felt weird and the next thing he knew that he went down. Per bystanders, he had a syncopal episode, but returned to quickly to the baseline. Patient is unable to clarify if he felt weak, lightheadedness, dizziness, or if he had other symptoms. Patient is poor historian. He states that he got less volume taken off with dialysis than usual because he was at the center near the closing time. He usually goes to the dialysis earlier in the day; however, today he was delayed because he also has similar syncope episode this morning and he was seen at [facility]. Reports that he had CT scan of head done and was discharged. He states that this morning, he was eating and all of sudden, he went down. Currently, he is not complaining about feelings like that and no chest pain, no palpitation, no fever, no chills. PAST MEDICAL HISTORY: Amyloidosis, renal failure, getting dialysis 3 times a week, Sunday, Sunday, and Sunday, has loop recorder on the chest, has avascular necrosis, arthritis, back pain, back surgery, left hip replacement. FAMILY HISTORY: Father, mother noncontributory. HABITS: Smoking, heavy, more than 10 cigarettes a day. Alcohol, yes. Substance abuse, no, as per patient. ALLERGIES: PATIENT IS ALLERGIC TO ACETAMINOPHEN. MEDICATIONS: Neurontin, Opana, oxycodone, Eliquis. REVIEW OF SYSTEMS: Patient was seen and examined at the bedside, in his room, complaining about headache, otherwise no vision changes. No back pain. No dizziness. PHYSICAL EXAMINATION: VITAL SIGNS: Temperature 98, pulse 66, respiratory rate 19, blood pressure 169/85. pulse oximetry 98. HEENT: Head normocephalic, has contusion, swelling, laceration occipital region. PERRLA. Extraocular muscles intact. Conjunctivae clear. Nose patent. Mucous membrane moist. NECK: Supple. No carotid bruit. No JVD or thyromegaly. RESPIRATORY: Clear to auscultation. HEART: S1 and S2 positive. Regular rate and rhythm. ABDOMEN: Soft, nontender. No organomegaly. EXTREMITIES: No edema. No cyanosis. NEUROLOGICAL: The patient is awake, alert. Moving all four extremities. No focal deficits LABORATORY DATA: White blood cells 11, hemoglobin 9.1, hematocrit 29.1, platelets 156. Sodium 140, potassium 4.2, BUN 32, creatinine 7.3, glucose 99. ASSESSMENT AND PLAN: Mr. Rishabh Mckeon with anemia, renal insufficiency, getting dialysis 3 times a week, history of amyloidosis, history of syncopal attack, scalp hematoma, history of hip pain, getting pain medication. Seen by Dr. Jacoby Reina for angiograph placement insertion in the right hand. CAT scan of the head is done. CAT scan of the chest is done. Cervical spine CAT scan is done. Called Nephrology consult with patient . No acute findings on cervical spine CAT scan. Focal areas of consolidation in the right middle lobe consistent with pneumonia. Getting antibiotics. CAT scan of the head appreciated. There is a large scalp hematoma posteriorly. There is no intracranial hemorrhage. No skull fracture. Patient is getting too much pain medications. I called pain management. Neurologist Dr. Puente and Dr. Guevara will see the patient. Gastrointestinal, deep vein thrombosis prophylaxis. Holding Eliquis because of hematoma. Repeat labs. We will follow up. Deandra García MD MTDGavin
[2018-02-17] MEDS ORDERED: Azithromycin 500 MG in Sodium Chloride 0.9% 250 ML IVPB SCH (10:00)
[2018-02-17 12:59] LABS: FOLATE 9.4 ng/mL
--- NOTE | 2018-02-17 13:38 | CON ---
DATE: 02/17/2018 CARDIOLOGY CONSULTATION (FOR DR. JEFFRIES) HISTORY OF PRESENT ILLNESS: The patient is a 52-year male who is currently in four-point restraints in the hospital. He is markedly combative and required significant sedation. According to the chart, the patient was on dialysis due to renal failure secondary to amyloidosis. He has been dizzy and has had multiple syncopal episodes. MEDICATIONS AT HOME: Include oxycodone and Neurontin. Currently, on Eliquis at home as well. SOCIAL HISTORY: Unavailable. REVIEW OF SYSTEMS: Unavailable. PHYSICAL EXAMINATION: GENERAL: The patient is sedated in four-point restraints. VITAL SIGNS: Blood pressure is 156/92, the heart rates in the 60s. NECK: Negative JVD. LUNGS: Without rales. HEART: Reveals S1, S2 without evidence for LV outflow obstruction. EXTREMITIES: Without edema. LABORATORY DATA: EKG is unremarkable. Hemoglobin is 8.3. BUN and creatinine are 52 and 10.5. IMPRESSION: 1. Status post recurrent falls and syncope. 2. Marked agitation. 3. End-stage renal disease. 4. Anemia. 5. History of amyloidosis. Given these findings, currently, the patient is hemodynamically stable. When the patient is more cooperative, we will obtain an echocardiogram to evaluate LV function. In the morning, we will sign the case back to Dr. Jeffries. Husam Ferrer MD
--- NOTE | 2018-02-17 15:57 | CP.PCM.PN ---
Subjective - Date & Time of Evaluation Date of Evaluation: 02/17/18 Time of Evaluation: 13:22 - Subjective Subjective: Igor Burk D.O. PGY-3, Internal Medicine Resident, DadaO. On Duty Patient re-evaluated after previous code norris incident. Patient continues to be physically aggressive and has been thrashing about in his bed and slipped his hand out of the restraint. He continues to be a danger to the staff, nursing, and even possibly himself. Patient will be given PRN medications by nurse and will continue the 4 point restraints for now. Psych is aware of patient. Objective - Vital Signs/Intake and Output Vital Signs (last 24 hours): Temp Pulse Resp BP Pulse Ox 98 F 67 20 156/92 H 97 02/17/18 08:16 02/17/18 08:16 02/17/18 08:16 02/17/18 08:16 02/17/18 08:16 Intake and Output: 02/17/18 02/17/18 06:59 18:59 Intake Total 420 Balance 420 - Medications Medications: Current Medications Apixaban (Eliquis) 5 mg PO BID MIKE PRN Reason: Protocol Gabapentin (Neurontin) 300 mg PO TID MIKE PRN Reason: Protocol Last Admin: 02/17/18 11:25 Dose: Not Given Azithromycin 500 mg/ Sodium (Chloride) 250 mls @ 250 mls/hr IVPB DAILY MIKE PRN Reason: Protocol Stop: 02/21/18 10:01 Last Admin: 02/17/18 11:25 Dose: Not Given Lorazepam (Ativan) 2 mg IVP Q4H PRN; Protocol PRN Reason: Agitation Last Admin: 02/17/18 13:34 Dose: 2 mg Oxycodone HCl (Oxycontin Extended Release Tab) 60 mg PO Q8H MIKE Last Admin: 02/17/18 05:06 Dose: 60 mg Ziprasidone (Geodon Inj) 10 mg IM Q6H PRN; Protocol PRN Reason: severe agitation Last Admin: 02/17/18 09:53 Dose: 10 mg - Labs Labs: 02/17/18 04:30 02/17/18 04:30 PT 13.2 SECONDS (9.4-12.5) H 02/15/18 21:35 INR 1.15 (0.93-1.08) H 02/15/18 21:35 APTT 25.6 Seconds (25.1-36.5) 02/15/18 21:35
--- NOTE | 2018-02-18 04:34 | PN ---
DATE: 02/17/2018 SUBJECTIVE: The patient is a 52-year-old male. The patient was seen and examined at the bedside. bindery chief notes and evidence noted by me. The patient was seen by Dr. Riena at hospitalization early in the morning. I reviewed his medication report. The patient was having jerky movements and Dr. Reina saw the patient. Later on, the patient became aggressive and they have to call Blue Code and they have to call police and I arrived there that moment also. The patient was put on 4 points restraint. Actually no nausea, vomiting or diarrhea. No hematuria or hematochezia. No headache. No dizziness. The patient was put in the beginning on 1:1 observation. The patient has history of kidney failure. He is well-developed, well-nourished, agitated male, appears intoxicated. Eyes closing at that time, sometimes slurring words, appears to off balance, high risk of fall, poor insight, loud at a time and appears to have very poor coordination. PHYSICAL EXAMINATION: VITAL SIGNS: Temperature 98.7, pulse 67, respiratory rate 20, blood pressure 157/92, pulse oximetry 97. HEENT: Head normocephalic, atraumatic. Eyes, PERRLA. Extraocular movements are intact. Conjunctivae clear. Nose patent. Mucous membrane moist. NECK: Supple. No carotid bruit. No JVD or thyromegaly. CHEST: Bilaterally symmetrical. HEART: S1, S2 positive. LUNGS: Clear to auscultation. ABDOMEN: Soft. Bowel sounds present. No organomegaly. EXTREMITIES: No edema. No cyanosis. NEUROLOGICAL: The patient is awake, sometimes closing eyes. Moving all 4 extremities. MEDICATIONS: Eliquis, Neurontin, azithromycin, Ativan, oxycodone. LABORATORY DATA: White blood cell is 8.7, hemoglobin 8.3, hematocrit 27, platelets 180. Sodium 139, potassium 4.9, BUN 52, creatinine 10.5, glucose 92. ASSESSMENT AND PLAN: Mr. Rishabh Mckeon is a 52-year-old male with anemia; renal insufficiency, seen by optical fabricator, Dr. Husam Ferrer; status post recurrent falls and syncope; mild agitation; end-stage renal disease, on hemodialysis three times a week; history of amyloidosis; anemia. Given these findings, currently the patient is hemodynamically stable. When the patient is more cooperative, we will obtain the echocardiography as per Dr. Husam Ferrer for evaluation of left ventricular function. CAT scan of the head was done. I noted the report of Dr. Jacoby Reina and other mds , Continue present treatment. Psych consult is called. Repeat labs. Nephrology consult called and we will follow up. Deandra García MD MTDD
[2018-02-18 06:44] LABS: MEAN CELL VOLUME 89.3 fl (80.0-105.0); MEAN CORPUSCULAR HEMOGLOBIN 27.6 pg (25.0-35.0); MEAN CORPUSCULAR HGB CONC 30.9 g/dl (31.0-37.0); MEAN PLATELET VOLUME 11.2 fl (7.0-11.0); RBC 3.26 10^6/uL (3.5-6.1); WHITE BLOOD COUNT 8.3 10^3/ul (4.5-11.0)
[2018-02-18] MEDS: oxyCODONE 20 mg ER Tab (oxyCONTIN) PO SCH ×3 (07:10→22:26)
[2018-02-18] MEDS ORDERED: Azithromycin 500MG/NS 250ml 500 MG/250 ML BAG IVPB SCH (07:16)
[2018-02-18] MEDS ORDERED: Darbepoetin Alfa 40 mcg/ml Inj IVP ONE (14:31)
[2018-02-18 14:42] LABS: BARBITURATES, UR NEGATIVE (NEGATIVE); BENZODIAZEPINES, UR NEGATIVE (NEGATIVE); OPIATES, UR POSITIVE (NEGATIVE); PHENCYCLIDINE, UR NEGATIVE (NEGATIVE)
[2018-02-18] MEDS ORDERED: Albuterol-Ipratrop 3 mg / 0.5 (3 ml) UD IH PRN (18:33)
--- NOTE | 2018-02-18 20:31 | PN ---
DATE: 02/18/2018 REASON FOR CONSULTATION AND FOLLOWUP: Cardiac evaluation, history of near syncope. SUBJECTIVE: Patient denies any chest pain, shortness of breath, any palpitation. OBJECTIVE: GENERAL: Patient is in four-point leather restraint, found to be combative earlier. VITAL SIGNS: As follows: Temperature afebrile, heart rte 81, blood pressure 147/90. HEENT: PERRLA. Extraocular muscles intact. NECK: Supple. No carotid bruit. No thyromegaly. CHEST: Clear to auscultation. HEART: S1 and S2 regular. ABDOMEN: Soft. EXTREMITIES: Clubbing and cyanosis negative. LABORATORY DATA: Blood workup as follows: WBC 8.3, hemoglobin 9, hematocrit 29.1, platelet count 139. Chemistry shows sodium 130, potassium 5.5, chloride 106, carbon dioxide 18, anion gap of 24, BUN 60, creatinine 12.1. TSH 22.3. IMPRESSION: A 52-year-old male with history of amyloidosis, end-stage renal disease on dialysis since January, admitted with combative, altered mental status so far. Patient appears to be mild anemic, acute kidney injury, chronic renal insufficiency, and elevated TSH. Denies any chest pain, short of breath, or any palpitation, status post recurrent fall, anemia, and history of amyloidosis as mentioned. Telemetry did not show any arrhythmia. History of avascular necrosis and left hip surgery, arthritis, back pain, end-stage renal disease on dialysis three times a week, altered mental status. Claims that pass out, cannot rule out seizure. RECOMMENDATION: We will review if any echo was not done before. We will have him monitor in telemetry. Neurology evaluation patient get sober. We will get echo. We will get lipid profile, TSH, hemoglobin A1c. TSH is elevated; we will start low dose of Synthroid. Dialysis as per Renal. Shila Maxwell MD
--- NOTE | 2018-02-18 22:42 | CON ---
DATE: HISTORY OF PRESENT ILLNESS: The patient is a 52-year-old male patient, was admitted on the medical site for evaluation of possible syncopal episode. The patient has multiple medical issues as per notes from the nursing staff as well as medical doctor. The patient was confused, agitated, was in restraints. Psych consult was called for evaluation of possible delirium stage and mood symptoms. The patient was seen and examined. The patient is off restraint. The patient presented to be alert and oriented on current circumstances. The patient reports that he has medical issues. He moved here just couple of months ago and currently, he lives in [facility] for the past 2 months. The patient is satisfied with the living situation. The patient has future oriented plans to move in his friend's house somewhere in [place]. The patient reported that at present moment, he wants to address his medical issues, wants to get better and wants to be discharged. The patient reported that he feels angry at times, but adamantly denied thoughts of killing himself or others. The patient denied hearing voices, denied seeing things. Denied paranoid ideation. The patient does not present to be psychotic. At the same time, as per nursing report, one minute the patient is okay and another minute, he is completely confused. Based on these, most likely, the patient is in delirium stage, but this law writer repeat herself that during the interview, the patient was fully alert and oriented and seems to be a good historian. The patient reports that he is on probation and he will be off probation for the next 2 months. The patient reported that he is not hearing voices, does not seeing any things and he does not use any drugs. PHYSICAL EXAMINATION: VITAL SIGNS: Seems to be stable. Temperature 98.1, pulse is 81, blood pressure 150/93, respiration 20, oxygen saturation is 100. MEDICATIONS: Reviewed. The patient is on Zithromax, doxercalciferol, gabapentin, Synthroid, Ativan 2 mg IV push every 4 hours p.r.n. for agitation, OxyContin and Geodon 10 mg every 6 hours p.r.n. for severe agitation. The patient got only 10 mg. Agree with that plan. LABORATORY DATA: Labs reviewed, most recent was from today. Toxicology was positive for opioids. Maybe, the patient was on pain killers. Creatinine is elevated 12.1. TSH of 22.3. T4 of 4.6. PAST PSYCHIATRIC HISTORY: The patient denied being depressed. Denied history of suicidal attempt. The patient denied history of being admitted to the Psychiatric Inpatient Unit. Mental status examination as this law writer described above. The patient was fully alert and oriented at the moment of interview. The patient reports that he is not depressed, but angry about his living situation, but feels appreciated that he has roof over his head. The patient has episodes of confusion, but during my assessment, the patient was alert and oriented, pleasant and cooperative. Mood described as angry at times, but at the moment of interview, the patient reported feeling okay. Thought process was coherent and goal directed. Thought content, the patient denied visual, auditory, tactile hallucinations. Denied paranoid ideation. The patient does not present to be agitated or psychotic. At the same time, the patient was in the restraint. Most likely, the patient was in delirium stage. IMPRESSION: Most likely, the patient was in delirium stage due to general medical condition. Right now, the patient is improving. PLAN: Continue current management. Continue current medication. Agree with Sophia. Agree with the Ativan. The patient pose no imminent danger to self or others. Delirium is improving. This law writer will sign off. Should you have any questions, give me a call back. Shayna Alexis MD
[2018-02-18] MEDS: Multivitamin With Minerals Tab PO SCH (23:15)
[2018-02-19] MEDS: oxyCODONE 20 mg ER Tab (oxyCONTIN) PO SCH ×3 (05:44→21:17)
[2018-02-19] MEDS: Levothyroxine 50 MCG TAB PO SCH (05:45)
--- NOTE | 2018-02-19 06:30 | CON ---
DATE: 02/18/2018 REFERRING PHYSICIAN: Dr. Deandra García. REASON FOR CONSULT: Syncopal episode, rule out cardiopulmonary disease. HISTORY OF PRESENT ILLNESS: This is a 52-year-old gentleman with past medical history significant for renal failure, dialysis dependent; history of amyloidosis; history of hip replacement secondary to avascular necrosis; while he was shopping felt unstable and he went down on the floor, but came totally to his baseline and was brought into emergency room. Before that, he had a similar episode and was seen at [facility]. While in the hospital, he had a code bolanos. police was called in. He was placed in a 4-point restraint, seen by Psychiatry. Admit to have snoring, daytime sleepy and tired. No hemoptysis. No hematemesis. No hematuria, no diarrhea reported. PAST MEDICAL HISTORY: As per history of present illness. ALLERGIES: TO TYLENOL. SOCIAL HISTORY: Positive history of smoking. Denied any alcohol use. FAMILY HISTORY: No significant cardiopulmonary disease reported. MEDICATIONS: He is on lorazepam 2 mg IV every 4 hours p.r.n. for agitation, Eliquis 5 mg twice a day, Geodon 10 mg every 6 hours p.r.n. IM, also on Neurontin 300 mg 3 times a day, OxyContin extended release 60 mg every 8 hours, Synthroid 50 mcg daily, Zithromax 500 mg daily. REVIEW OF SYSTEMS: No headache, no rhinitis. Admit to have snoring, daytime sleepy, get short of breath on exertion. No chest pain at present. No nausea, no vomiting, no diarrhea, leg pain or leg swelling. PHYSICAL EXAMINATION: GENERAL: He is under one-to-one supervision with 4-point leather. VITAL SIGNS: Temperature is 98, heart is 81, respiratory rate is 20, blood pressure 150/93, pulse ox 100% on room air. HEENT: Moist mucous membrane. Crowded airway. Mallampati score is 4. NECK: Supple. No JVD. LUNGS: Has fair airflow with few rhonchi. HEART: S1 and S2. ABDOMEN: Soft, nontender. No organomegaly. EXTREMITIES: There is no edema. NEUROLOGIC: Awake and follows simple commands. LABORATORY DATA: Shows hemoglobin 9, hematocrit 29.1, WBC 8.3, platelet is 139. Sodium 139, potassium 5.5, chloride 103, bicarbonate 18, BUN 60, creatinine 12.1. Glucose is 82, calcium is 8. Drug screen done today is positive for opiates. CT scan of the head done yesterday shows no disease. Also, had a CT of the chest done in ER, shows focal area of consolidation in the right middle lobe consistent with pneumonia. IMPRESSION AND PLAN: Status post syncopal episode, pneumonia, renal failure, dialysis dependent, history of amyloidosis, anemia, hypothyroid, may be component of chronic lung disease. Case discussed with the nursing staff in detail. We will place him on inhaled bronchodilator, antibiotics, gastric prophylaxis, deep venous thrombosis prophylaxis. Keep head at 45 degrees. Aspiration precaution. Syncopal episode could be secondary to pneumonia on top of probably heat-related syncopal episode. Continue Psychiatry followup, use protocol to remove restraint. Will recommend pulmonary function tests as outpatient, sleep study as outpatient. The patient has to stop smoking. Thank you and we will follow with you. Shila Cordero MD
--- NOTE | 2018-02-19 07:30 | CP.PCM.PN ---
Subjective - Date & Time of Evaluation Date of Evaluation: 02/19/18 Time of Evaluation: 06:30 - Subjective Subjective: Awake, alert, sitting side of bed, with sitter, responds to verbal commands Reason for consultation and follow up: Cardiac evaluation for syncope, history of amyloidosis, End stage renal disease on hemodialysis since January 2018. combative behaviour ( was placed on 4 point leather restraints), altered mental status, hypothyroidism. Seen and examined by me and Dr. Maxwell Objective - Vital Signs/Intake and Output Vital Signs (last 24 hours): Temp Pulse Resp BP Pulse Ox 97.8 F 87 20 150/93 H 100 02/18/18 08:39 02/18/18 14:00 02/18/18 08:39 02/18/18 08:39 02/18/18 08:39 Intake and Output: 02/19/18 02/19/18 06:59 18:59 Intake Total 1260 Output Total 600 Balance 660 - Medications Medications: Current Medications Albuterol/Ipratropium (Duoneb 3 Mg/0.5 Mg (3 Ml) Ud) 3 ml IH [id number] PRN PRN Reason: Shortness of Breath Apixaban (Eliquis) 5 mg PO BID MIKE PRN Reason: Protocol Doxercalciferol (Hectorol) 1 mcg IV MWF [facility] Folic Acid (Folic Acid) 1 mg PO DAILY [facility] Last Admin: 02/18/18 23:15 Dose: 1 mg Gabapentin (Neurontin) 300 mg PO TID MIKE PRN Reason: Protocol Last Admin: 02/18/18 17:29 Dose: 300 mg Azithromycin (Zithromax 500mg In Ns) 500 mg in 250 mls @ 250 mls/hr IVPB DAILY MIKE PRN Reason: Protocol Stop: 02/21/18 10:01 Last Admin: 02/18/18 12:33 Dose: 250 mls/hr Cefepime HCl 0.5 gm/ Sodium (Chloride) 100 mls @ 100 mls/hr IVPB DAILY MIKE PRN Reason: Protocol Levothyroxine Sodium (Synthroid) 50 mcg PO 0600 MIKE Last Admin: 02/19/18 05:45 Dose: 50 mcg Lorazepam (Ativan) 2 mg IVP Q4H PRN; Protocol PRN Reason: Agitation Last Admin: 02/19/18 05:45 Dose: 2 mg Multivitamins/Minerals (Therapeutic-M Tab) 1 tab PO 0800 [facility] Last Admin: 02/18/18 23:15 Dose: 1 tab Oxycodone HCl (Oxycontin Extended Release Tab) 60 mg PO Q8H [facility] Last Admin: 02/19/18 05:44 Dose: 60 mg Thiamine HCl (Vitamin B1 Tab) 50 mg PO DAILY [facility] Last Admin: 02/18/18 23:15 Dose: 50 mg Ziprasidone (Geodon Inj) 10 mg IM Q6H PRN; Protocol PRN Reason: severe agitation Last Admin: 02/18/18 18:55 Dose: 10 mg - Labs Labs: 02/18/18 06:00 02/18/18 06:00 PT 13.2 SECONDS (9.4-12.5) H 02/15/18 21:35 INR 1.15 (0.93-1.08) H 02/15/18 21:35 APTT 25.6 Seconds (25.1-36.5) 02/15/18 21:35 - Constitutional Appears: No Acute Distress - Head Exam Head Exam: NORMOCEPHALIC - Eye Exam Eye Exam: Normal appearance - ENT Exam ENT Exam: Mucous Membranes Moist - Respiratory Exam Respiratory Exam: Clear to Ausculation Bilateral, NORMAL BREATHING PATTERN - Cardiovascular Exam Cardiovascular Exam: +S1, +S2 Additional comments: right subclavian shiley - GI/Abdominal Exam GI & Abdominal Exam: Soft, Normal Bowel Sounds - Extremities Exam Extremities Exam: Normal Capillary Refill - Neurological Exam Neurological Exam: Alert, Awake Additional comments: confuse, uncooperative, - Psychiatric Exam Psychiatric exam: Agitated, Anxious - Skin Skin Exam: Dry, Warm Assessment and Plan - Assessment and Plan (Free Text) Assessment: A 52 year old male admitted due to syncopal episode, prior to admission just had hemodialysis, history of amyloidosis, End stage renal disease on hemodialysis since January 2018. combative behaviour ( was placed on 4 point leather restraints), altered mental status, hypothyroidism. Plan: Off 4 point restraints, with sitter Anxious Heart rate and blood pressure stable No more episode of syncope Now that off resptraints will order orthosthatic BP Neuro on consult Renal on consult Continue current treatment Continue current medications Will follow up Plan and treatment discussed with Dr. Maxwell
--- NOTE | 2018-02-19 08:45 | PN ---
DATE: 02/18/2018 SUBJECTIVE: The patient is seen sitting in bed. He is awake, but he is confused. He is somewhat groggy. The case is discussed with nursing staff. The patient was combative/agitated yesterday. He was in four-point restraints. There is suspicion he might have consumed some street drugs. PHYSICAL EXAMINATION: GENERAL: Middle-aged male, sitting in bed. VITAL SIGNS: Blood pressure 150/93, heart rate 81, respiratory rate 20, temperature 97.8. HEENT: Normocephalic, atraumatic. NECK: Supple. No JVD. LUNGS: Bilateral equal air entry, bilateral equal expansion. CARDIAC: S1 and S2, regular rate and rhythm, no murmur, no rub. ABDOMEN: Obese, distended, soft, nontender, bowel sounds present. EXTREMITIES: No lower extremity edema. INTAKE AND OUTPUT: Not charted. LABORATORY DATA: WBC 8.3, hemoglobin 9, hematocrit 29, platelets 139. Sodium 139, potassium 5.5, chloride 106, CO2 of 18, BUN 60, creatinine 12.1, glucose 82, calcium 8. Urine opiates positive. MEDICATIONS: Ativan 2 mg IV push every 5, cefepime 0.5 g daily, DuoNeb, Eliquis 5 b.i.d., Geodon, Hectorol, gabapentin, oxycodone, Synthroid, Zithromax. ASSESSMENT: 1. Status post fall/syncope. 2. Chronic opioid dependence. 3. End-stage renal disease. 4. History of deep venous thrombosis. 5. Hyperkalemia. 6. End-stage renal disease. 7. Anemia. PLAN: 1. Dialysis today. 2. [place] and Jennifer on dialysis. 3. Mary Jeffers MD
--- NOTE | 2018-02-19 11:11 | PN ---
DATE: 02/18/2018 The patient is a 52 years old male. SUBJECTIVE: The patient was seen and examined at the bedside late evening on 02/18/2018. The patient was awake and alert, but getting moments of sleepiness, was on one-to-one. Even 2 girls are standing on the bedside, one was a one-to-one and nurseGrace was also keeping an eye on him and redirecting him. No nausea, vomiting or diarrhea. No hematuria, no headache, no dizziness. No chest pain. No palpitation. Admits snoring and daytime sleepy, short of breath on exertion. According to him sometime he is getting pleuritic chest pain with breathing. No fever, no chills. The patient is supposed to go for dialysis, almost on the way to dialysis. PHYSICAL EXAMINATION: VITAL SIGNS: Vitals noted by me within normal limits. HEENT: Head: Normocephalic, atraumatic. Eyes: PERRLA. Extraocular muscles intact. Conjunctivae clear. Nose patent. Mucous membranes moist. NECK: Supple. No carotid bruit. No JVD or thyromegaly. CHEST: Bilaterally symmetrical. HEART: S1 and S2 positive. LUNGS: Clear to auscultation. ABDOMEN: Soft. Bowel sounds present. No organomegaly. EXTREMITIES: No edema. No cyanosis. NEUROLOGICAL: Patient is awake and getting sleepy in between. MEDICATIONS: Lorazepam for agitation, Eliquis, Geodon, OxyContin, Synthroid and azithromycin. LABORATORY DATA: I reviewed the labs. ASSESSMENT AND PLAN: Mr. 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 The patient was agitated day before yesterday. Police was called, 4-point leather restraint was done. According to nursing staff, the patient has a bottle of medications and he consumes all. Before that the patient has a visitor. We now put restrictions on the visitor. The patient is on one-to-one and one nurse is also standing there. Psych is on the case. He is going to dialysis. Vitals are stable. Temperature is 98, heart rate 81, respiratory rate 20 with blood pressure 150/93, status post syncopal episode, pneumonia, hypothyroidism and chronic obstructive pulmonary disease. Discussion done with the patient's nursing staff, Grace. Continue Psych followup. Used protocol to remove restraint, but that moment when I did examination, he was not physically restraint. He was on one-to-one. Education done. Gastrointestinal and deep vein thrombosis prophylaxis. Repeat labs. We will follow up. Deandra García MD
[2018-02-19 12:19] LABS: HEPATITIS B SURFACE AG Negative (NEGATIVE)
[2018-02-19 12:25] LABS: HEPATITIS B CORE AB NEGATIVE (NEGATIVE)
[2018-02-19] MEDS: Cefepime 0.5 GM in Sodium Chloride 0.9% 100 ML IVPB SCH (15:51)
[2018-02-19] MEDS: Multivitamin With Minerals Tab PO SCH (15:52)
--- NOTE | 2018-02-19 19:21 | PN ---
DATE: 02/19/2018 SUBJECTIVE: The patient is currently seen sitting up in bed. His sister is in the room. He is eating his dinner. He appears somewhat groggy, somewhat confused. The patient had an uneventful dialysis yesterday. He was readmitted back to the hospital for confusion, falls, and syncope. The patient's box toe buffer is Dr. Nye, but we are monitoring and seeing the patient in [facility] at this time. MEDICATIONS: Medication list reviewed. The patient is on Ativan, cefepime, DuoNeb, Eliquis, folic acid, Geodon, Hectorol, Neurontin, oxycodone, Synthroid, therapeutic vitamins, multivitamins B1, and Zithromax. PHYSICAL EXAMINATION: INTAKE AND OUTPUT: Intake is 1260, output is 600 plus dialysis. VITAL SIGNS: Blood pressure 167/94. Temperature 98.6, pulse of 73 with a respiratory rate of 20, pulse ox is 98%. HEENT: Shows him to be normocephalic. Blunt trauma to the head from falls. Conjunctivae are pale. Sclerae are nonicteric. NECK: Supple. No neck vein distention. CHEST: Clear to auscultation and percussion. No rales, rhonchi, or wheezing. CARDIOVASCULAR: Shows a normal S1, S2 without murmurs, rubs, or gallops. ABDOMEN: Soft. Bowel sounds normal. No rebound, guarding, or masses. EXTREMITIES: Show no lower extremity cyanosis, clubbing, or edema. The patient has a right chest wall PermCath. NEUROLOGIC: Shows him to be alert, somewhat disoriented, confused, and mildly combative. LABORATORY DATA AND IMAGING: Admitting head CT scan showed no intracranial pathology. Admitting chest CT showed a right middle lobe pneumonia. Labs predialysis yesterday: White blood cell count 8.3, hemoglobin 9, platelet count is 139,000. Chemistries showed a potassium of 5.5 predialysis yesterday. BUN 60 with a creatinine of 12.1. Calcium is 8. Phosphorus is elevated at 7.7. Iron saturations were 19%. Albumin level was 3.5. Toxicology screen positive for opiates. Hepatitis serologies were negative. Microbiology, no data available for comment. ASSESSMENT: 1. Status post multiple falls, syncope, confusion with blunt trauma to the head. The patient has been combative, agitated, unclear whether or not he is taking more narcotics than prescribed. Unclear whether or not he is using drugs. Is all likely unsafe for him to go home at this point in time. 2. Chronic opiate dependence with chronic pain syndrome. 3. History of end-stage renal disease. As per his sister, it appears that the biopsy was positive for possible amyloidosis. The patient will continue on Sunday, Sunday, and Sunday dialysis. 4. History of hypercoagulability with deep venous thrombosis. The patient had been on Eliquis. This was placed on hold because of his falls and head trauma. 5. Status post mild hyperkalemia. 6. Hypothyroidism. The patient was started on Levoxyl 50 mcg a day, elevated TSH. 7. Right middle lobe pneumonia. The patient is on IV and oral antibiotic therapy, being seen by Pulmonary. 8. History of secondary hyperparathyroidism. The patient's phosphorus level is elevated at 7.7. He will start binder therapy and continue renal diet. PLAN: 1. Discussed with Dr. García and the patient's sister. It would be unsafe for the patient to be discharged from the hospital at this point in time. He remains combative, confused. He is at risk for falling. 2. Continue Sunday, Sunday, Sunday dialysis. 3. [place] and Jennifer on dialysis. 4. Renal diet with binder therapy. 5. Continue antibiotic therapy for his right middle lobe pneumonia. 6. As discussed with the patient's sister and Dr. García. His box toe buffer is Dr. Nye. If Dr. Nye would like to come to the hospital to follow him, we will sign off the case. 7. Further hematological evaluation for amyloidosis in progress. Hieu Mccauley MD
--- NOTE | 2018-02-20 02:33 | PN ---
DATE: 02/19/2018 PULMONARY PROGRESS NOTE REFERRING PHYSICIAN: Deandra García MD. SUBJECTIVE: He is lying in the bed, head at 45 degrees. Night was unremarkable. Still under one-to-one supervision, but no more in restrain. Still has some cough. No shortness of breath. No nausea, no vomiting, no diarrhea. No leg pain, no leg swelling. OBJECTIVE: GENERAL: In no acute distress. VITAL SIGNS: Temperature is 98, heart rate 84, respiratory rate is 20, blood pressure 167/94, pulse ox 98% on room air. HEENT: Moist mucous membrane. Crowded airway. NECK: Supple. No JVD. LUNGS: Have a fair airflow with a few rhonchi. HEART: S1 and S2. ABDOMEN: Soft, nontender, no organomegaly. EXTREMITIES: No edema. NEUROLOGIC: Awake, alert, follows simple command. MEDICATIONS: He is on Aranesp 40 mcg IV daily, lorazepam 2 mg every 4 hour p.r.n., cefepime 500 mg daily, DuoNeb every 6 hour p.r.n., Eliquis 5 mg twice a day, folic acid 1 mg daily, Geodon 10 mg every 6 hour p.r.n., iron sucrose 100 mg [id number]-Onqdbk, gabapentin 300 mg three times a day, oxycodone extended release 60 mg every 8 hour, Synthroid 50 mcg daily, multivitamins daily, vitamin B1 50 mg daily, Zithromax 500 mg daily. LABORATORY DATA: Reviewed. No new lab is available. Echocardiogram done, report is pending. IMPRESSION AND PLAN: Status post syncopal episode, pneumonia, renal failure, dialysis dependent, history of amyloidosis, anemia, hypothyroid, chronic lung disease, pneumonia, status post syncopal episode. Pulmonary point of view, doing okay. Continue bronchodilator. Keep head at 45 degrees. Out of bed to chair. Fall precaution. May get physical therapy involved. Had echocardiogram done, report is pending. Thank you and we will follow with you. Shila Cordero MD
--- NOTE | 2018-02-20 04:58 | PN ---
DATE: 02/19/2018 SUBJECTIVE: Patient is a 52-year-old male. Patient was seen and examined on the bedside, having dinner, looks like little bit confused, but answering most of the question. Sister was sitting on the bedside also. I met his sister for the first time. Patient gave me permission. Discussion done with the sister. All questions answered. Circular Knitter, Dr. Mccauley was on the bedside including patient's nurse and one to one lady. Patient is still on one-to-one, complaining about pain in the back of the head. No nausea, vomiting, or diarrhea. Appetite is appropriate. PHYSICAL EXAMINATION: VITAL SIGNS: Temperature 98.6, blood pressure 120/80 , respiratory rate 20, pulse oximetry 98%. HEENT: Head: Normocephalic, atraumatic. Eyes: PERRLA. Extraocular muscles intact. Conjunctivae clear. Nose patent. Mucous membranes moist. NECK: Supple. No carotid bruit, JVD, or thyromegaly. CHEST: Bilaterally symmetrical. HEART: S1 and S2 positive. LUNGS: Clear to auscultation. ABDOMEN: Soft. Bowel sounds present. No organomegaly. EXTREMITIES: No edema. No cyanosis. NEUROLOGIC: Patient is awake and alert, but getting confused once in a while, mildly combative. MEDICATIONS: Ativan, cefepime, DuoNeb, Eliquis, folic acid, Geodon, Hectorol, Neurontin,oxycodone, Synthroid, multivitamins, Zithromax. Deandra García MD MTDD
[2018-02-20] MEDS ORDERED: Darbepoetin Alfa 40 mcg/ml Inj IVP ONE (06:00)
[2018-02-20] MEDS: Levothyroxine 50 MCG TAB PO SCH (06:29)
[2018-02-20] MEDS: oxyCODONE 20 mg ER Tab (oxyCONTIN) PO SCH ×2 (06:30→13:29)
--- NOTE | 2018-02-20 07:00 | CP.PCM.PN ---
Subjective - Date & Time of Evaluation Date of Evaluation: 02/20/18 Time of Evaluation: 06:25 - Subjective Subjective: Awake, alert, no distress,anxious Reason for consultation and follow up: Cardiac evaluation for syncope, history of amyloidosis, End stage renal disease on hemodialysis since January 2018. combative behaviour ( was placed on 4 point leather restraints), altered mental status, hypothyroidism. Seen and examined by me and Dr. Maxwell Objective - Vital Signs/Intake and Output Vital Signs (last 24 hours): Temp Pulse Resp BP Pulse Ox 98.3 F 91 H 20 162/92 H 98 02/20/18 01:07 02/20/18 01:07 02/20/18 01:07 02/20/18 01:07 02/20/18 01:07 Intake and Output: 02/19/18 02/20/18 18:59 06:59 Intake Total 960 Output Total 650 Balance 310 - Medications Medications: Current Medications Albuterol/Ipratropium (Duoneb 3 Mg/0.5 Mg (3 Ml) Ud) 3 ml IH [id number] PRN PRN Reason: Shortness of Breath Apixaban (Eliquis) 5 mg PO BID MIKE PRN Reason: Protocol Azithromycin (Zithromax) 500 mg PO DAILY [facility] Stop: 02/21/18 10:01 Calcium Acetate (Phoslo) 667 mg PO WM [facility] Docusate Sodium (Colace) 100 mg PO DAILY [facility] Doxercalciferol (Hectorol) 1 mcg IV MWF [facility] Folic Acid (Folic Acid) 1 mg PO DAILY [facility] Last Admin: 02/19/18 15:50 Dose: 1 mg Gabapentin (Neurontin) 300 mg PO TID MIKE PRN Reason: Protocol Last Admin: 02/19/18 18:25 Dose: Not Given Cefepime HCl 0.5 gm/ Sodium (Chloride) 100 mls @ 100 mls/hr IVPB DAILY MIKE PRN Reason: Protocol Last Admin: 02/19/18 15:51 Dose: 100 mls/hr Levothyroxine Sodium (Synthroid) 50 mcg PO 0600 [facility] Last Admin: 02/20/18 06:29 Dose: 50 mcg Lorazepam (Ativan) 2 mg IVP Q4H PRN; Protocol PRN Reason: Agitation Last Admin: 02/19/18 05:45 Dose: 2 mg Multivitamins/Minerals (Therapeutic-M Tab) 1 tab PO 0800 [facility] Last Admin: 02/19/18 15:52 Dose: 1 tab Oxycodone HCl (Oxycontin Extended Release Tab) 60 mg PO Q8H [facility] Stop: 02/26/18 23:59 Last Admin: 02/20/18 06:30 Dose: 60 mg Thiamine HCl (Vitamin B1 Tab) 50 mg PO DAILY [facility] Last Admin: 02/19/18 15:52 Dose: 50 mg Ziprasidone (Geodon Inj) 10 mg IM Q6H PRN; Protocol PRN Reason: severe agitation Last Admin: 02/19/18 08:30 Dose: 10 mg - Labs Labs: 02/18/18 06:00 02/18/18 06:00 PT 13.2 SECONDS (9.4-12.5) H 02/15/18 21:35 INR 1.15 (0.93-1.08) H 02/15/18 21:35 APTT 25.6 Seconds (25.1-36.5) 02/15/18 21:35 - Constitutional Appears: No Acute Distress - Head Exam Head Exam: NORMOCEPHALIC - Eye Exam Eye Exam: Normal appearance - ENT Exam ENT Exam: Mucous Membranes Moist - Respiratory Exam Respiratory Exam: Clear to Ausculation Bilateral, NORMAL BREATHING PATTERN - Cardiovascular Exam Cardiovascular Exam: +S1, +S2 Additional comments: right subclavian shiley catheter - GI/Abdominal Exam GI & Abdominal Exam: Soft, Normal Bowel Sounds - Extremities Exam Extremities Exam: Normal Capillary Refill - Neurological Exam Neurological Exam: Alert, Awake - Psychiatric Exam Psychiatric exam: Anxious - Skin Skin Exam: Dry, Warm Assessment and Plan - Assessment and Plan (Free Text) Assessment: A 52 year old male admitted due to syncopal episode, prior to admission just had hemodialysis (MWF) history of amyloidosis, End stage renal disease on hemodialysis since January 2018. combative behaviour ( was placed on 4 point leather restraints), altered mental status, hypothyroidism. Plan: Echo was done awaiting result Anxious,confuse Off 4 point restraints, with sitter Heart rate and blood pressure stable Cardiac status stable No more episode of syncope On IV antibiotics for pneumonia Neuro on consult Renal on consult Continue current treatment Continue current medications Will follow up Plan and treatment discussed with Dr. Maxwell
[2018-02-20 07:59] LABS: HEMOGLOBIN 8.5 g/dL (14.0-18.0); MEAN CELL VOLUME 87.5 fl (80.0-105.0); MEAN CORPUSCULAR HEMOGLOBIN 27.9 pg (25.0-35.0); MEAN CORPUSCULAR HGB CONC 31.8 g/dl (31.0-37.0); MEAN PLATELET VOLUME 10.2 fl (7.0-11.0); RBC 3.05 10^6/uL (3.5-6.1); RED CELL DISTRIBUTION WIDTH 17.3 % (11.5-14.5); WHITE BLOOD COUNT 6.6 10^3/ul (4.5-11.0)
[2018-02-20 08:26] LABS: CALCIUM 7.8 mg/dL (8.4-10.5)
[2018-02-20] MEDS: Multivitamin With Minerals Tab PO SCH (08:47)
[2018-02-20] MEDS: Cefepime 0.5 GM in Sodium Chloride 0.9% 100 ML IVPB SCH (09:38)
[2018-02-20] MEDS ORDERED: Doxercalciferol 4 mcg/2 ml Inj IV SCH (10:00)
--- NOTE | 2018-02-20 12:24 | RAD ---
Date of service: 02/20/2018 HISTORY: eval COMPARISON: No prior. FINDINGS: LUNGS: Minimal linear scar or atelectasis in the right lung. PLEURA: No significant pleural effusion identified, no pneumothorax apparent. CARDIOVASCULAR: Normal. OSSEOUS STRUCTURES: No significant abnormalities. VISUALIZED UPPER ABDOMEN: Normal. OTHER FINDINGS: Dialysis catheter IMPRESSION: No active disease.
--- NOTE | 2018-02-20 14:49 | PN ---
DATE: 02/20/2018 PULMONARY PROGRESS NOTE REFERRING PHYSICIAN: Deandra García MD. SUBJECTIVE: He is lying in the bed, head at 45 degrees. Denies any headache. No rhinitis. Still has a mild cough. No nausea. No vomiting, diarrhea, leg pain, leg swelling. OBJECTIVE: GENERAL: In no acute distress. VITAL SIGNS: Temperature is 98, heart rate is 79, respiratory rate is 20, blood pressure 150/95, pulse ox 99% on room air. HEENT: Moist mucous membrane. Crowded airway. NECK: Supple. No JVD. LUNGS: Have a fair airflow with rhonchi. HEART: S1 and S2. ABDOMEN: Soft, nontender. No organomegaly. EXTREMITIES: No edema. NEUROLOGICAL: Awake, alert. Follows simple command. MEDICATIONS: He is on Ativan 2 mg every 4 hours p.r.n., cefepime 500 mg daily, Colace 100 mg daily, DuoNeb every 6 hour p.r.n., Eliquis 5 mg twice a day, folic acid 1 mg daily, Geodon 10 mg every 6 hours p.r.n., gabapentin 300 mg three times a day, Synthroid 50 mcg daily, multivitamins daily, vitamin B1 of 50 mg daily, Zithromax 500 mg daily. LABORATORY DATA: Shows hemoglobin 8.5, hematocrit 26.7, WBC 6.6, platelet is 161. Sodium , potassium 5.4, chloride 95, bicarbonate 23, BUN 39, creatinine 8.3, glucose 87, calcium is 7.8. Had a chest x-ray done today, which shows minimal linear scarring, atelectasis in the right lung, otherwise unremarkable. IMPRESSION AND PLAN: Status post syncopal episode, pneumonia, renal failure, dialysis dependent, history of amyloidosis, anemia, hypothyroid, chronic lung disease, status post syncope. Spoke to floor [employer]. If discharged, may go home with tapered dose of steroids, p.o. antibiotics. Fall precaution. The patient is asked to stop smoking. Thank you and we will follow with you. Shila Cordero MD
--- NOTE | 2018-02-20 18:20 | CARD ---
APPROVED REPORT Date of service: 02/19/2018 EXAM: Two-dimensional and M-mode echocardiogram with Doppler and color Doppler. INDICATION CP/LVFX 2D DIMENSIONS Left Atrium (2D)4.9 (1.6-4.0cm)IVSd1.2 (0.7-1.1cm) LVDd4.9 (3.9-5.9cm)PWd1.2 (0.7-1.1cm) LVDs3.1 (2.5-4.0cm)FS (%) 37.3 % LVEF (%)67.0 (>50%) M-Mode DIMENSIONS Aortic Root2.50 (2.2-3.7cm)Aortic Cusp Exc.1.80 (1.5-2.0cm) Aortic Valve AoV Peak Gmlgbymq338.0cm/Kimberli Peak GR.14mmHg Mitral Valve MV E Rbyqjyhj987.0cm/sMV A Onvodwsu721.0cm/sE/A ratio1.1 TDI Lateral E' Peak V10.70cm/sMedial E' Peak V7.02cm/sE/Lateral E'10.5 E/Medial E'16.0 Pulmonary Valve PV Peak Rnatmufm23.2cm/sPV Peak Grad.3mmHg Tricuspid Valve TR Peak Rvylddiy754cx/sRAP HOGAKOEA21niYpEO Peak Gr.27mmHg [id number] LEFT VENTRICLE The left ventricle is normal size. There is borderline to mild concentric left ventricular hypertrophy. The left ventricular function is normal.EF-65% There is normal LV segmental wall motion. The left ventricular diastolic function is normal. No left ventricle thrombus noted on this study. There is no ventricular septal defect visualized. There is no left ventricular aneurysm. There is no mass noted in the left ventricle. RIGHT VENTRICLE The right ventricle is normal size. There is normal right ventricular wall thickness. The right ventricular systolic function is normal. ATRIA The left atrium is mildly dilated. The right atrium size is normal. The interatrial septum is intact with no evidence for an atrial septal defect. AORTIC VALVE The aortic valve is thickened but opens well. The aortic valve is moderately to severe sclerotic. There is mild aortic regurgitation. There is no aortic valvular stenosis. Moderate to severe sclerotic/ degenerative changes, less likely Healed vegetation. MITRAL VALVE The mitral valve is thickened but opens well. Mitral regurgitation is mild to moderate. There is no mitral valve stenosis. The mitral valve leaflets are thickened and redundant without clear evidence of mitral valve prolapse. TRICUSPID VALVE The tricuspid valve leaflets are thickened , but open well. There is mild tricuspid regurgitation.RVSP-37 mmof hg. There is no tricuspid valve stenosis. There is no tricuspid valve prolapse or vegetation. PULMONIC VALVE The pulmonic valve is borderline thickened. There is trace to mild pulmonic valvular regurgitation. There is no pulmonic valvular stenosis. GREAT VESSELS The aortic root is normal in size. The ascending aorta is normal in size. The pulmonary artery is normal. The IVC is normal in size and collapses >50% with inspiration. PERICARDIAL EFFUSION There is no pleural effusion. There is no pericardial effusion. <Conclusion> The left ventricle is normal size. There is borderline to mild concentric left ventricular hypertrophy. The left ventricular function is normal.EF-65% There is mild aortic regurgitation. Mitral regurgitation is mild to moderate. The mitral valve leaflets are thickened and redundant without clear evidence of mitral valve prolapse. There is mild tricuspid regurgitation.RVSP-37 mmof hg. There is trace to mild pulmonic valvular regurgitation. The IVC is normal in size and collapses >50% with inspiration. There is no pericardial effusion. Moderate to severe sclerotic/ degenerative changes, less likely Healed vegetation. Suggest F/u blood C&S and F/u Echo in 1-2 years to Monitor AR/MR.
[2018-02-20] MEDS ORDERED: Apap-Butalbital-Caffeine 325-50-40mg Tab PO ONE (18:41)
--- NOTE | 2018-02-20 19:48 | PN ---
DATE: 02/20/2018 SUBJECTIVE: The patient is seen lying in bed. He is groggy, but arousable. He does not remember that he had dialysis yesterday. He wants to go home. PHYSICAL EXAMINATION: GENERAL: Young male, lying in bed. VITAL SIGNS: Blood pressure 150/95, heart rate 79, respiratory rate 18, and temperature 98.4. HEENT: Normocephalic, atraumatic, and positive pallor. NECK: Supple, no JVD. LUNGS: Bilateral equal air entry, bilateral equal expansion. CARDIAC: S1 and S2, regular rate and rhythm, no murmur, no rub. ABDOMEN: Soft, nondistended, nontender, bowel sounds present. EXTREMITIES: No lower extremity edema. INTAKE AND OUTPUT: 960/650 LABORATORY DATA: WBC 6.6, hemoglobin 8.5, hematocrit 27, and platelets of 161. Sodium 131, potassium 5.4, chloride 95, CO2 of 23. BUN 39, creatinine 8.3. Glucose 87. Calcium 7.8. Iron saturation 19, iron 45. Urine toxicology positive for opiates. Hepatitis serology negative. CURRENT MEDICATIONS: Ativan, cefepime 0.5 g daily, Colace, DuoNeb, Eliquis 5 b.i.d., folic acid, Geodon, Hectorol, Neurontin, PhosLo, Synthroid, and Zithromax. ASSESSMENT: 1. Status post syncopal episode. 2. Pneumonia. 3. End-stage renal disease. 4. Anemia. 5. Chronic obstructive pulmonary disease . 6. History of amyloidosis. PLAN: 1. Dialysis today. 2. No objection to discharge from the renal standpoint. 3. Continue oral antibiotics for pneumonia. 4. ?Psychiatric evaluation. Mary Jeffers MD
[2018-02-20 21:18] LABS: URINE 24 HOUR TOTAL PROTEIN 17145 mg/24HR (42-225); URINE COLLECTION TIME 24 HOURS; URINE TOTAL VOLUME 2700 mL (800-1400)
[2018-02-20] MEDS: oxyCODONE 20 mg ER Tab (oxyCONTIN) PO PRN (21:59)
--- NOTE | 2018-02-20 23:11 | PN ---
DATE: 02/20/2018 SUBJECTIVE: The patient was seen and examined on the bedside on 02/20/2018. Looks relaxed. Complaining about headache. Allergic with Tylenol, so cannot get Tylenol. Cannot get Fioricet. Then, I gave him Motrin 200 mg. No rhinitis. Still has mild cough. No nausea or vomiting. No diarrhea. No hematuria or hematochezia. No swelling of the legs. No chest pain. No palpitation. No more restraint. No more one-to-one. PHYSICAL EXAMINATION: VITAL SIGNS: Temperature 98, heart rate 79, respiratory rate 20, blood pressure 150/95, pulse oximetry 99% on room air. HEENT: Head normocephalic, atraumatic. Eyes PERRLA. Extraocular muscles intact. Conjunctivae clear. Nose patent. Mucous membrane moist. NECK: Supple. No carotid bruit. No JVD or thyromegaly. LUNGS: Have fair flow with rhonchi. HEART: S1 and S2 positive. ABDOMEN: Soft, nontender. No organomegaly. EXTREMITIES: No edema. No cyanosis. NEUROLOGICAL: The patient is awake and alert. Follows simple commands. MEDICATIONS: Ativan, cefepime, Colace, DuoNeb, Eliquis, folic acid, Geodon, gabapentin, Synthroid, multivitamins, Zithromax. LABORATORY DATA: Hemoglobin 8.5, hematocrit 26.7, white blood cells 6.6, platelets 161. Potassium 5.4, BUN 39, creatinine 8.3. Chest x-ray shows linear minimal scarring, atelectasis in the right lung, otherwise unremarkable. ASSESSMENT AND PLAN: Mr. Rishabh Mckeon, 52-year-old male with anemia, status post syncopal episode, pneumonia, renal insufficiency, dialysis dependent, getting dialysis 3 times a week, history of amyloidosis, hypothyroidism, chronic obstructive pulmonary disease, status post altered mental status, has four-point restraint, was on one-to-one. Got better. He is coming back on to baseline. Was complaining about headache. Allergic with Tylenol, so Tylenol and Fioricet cannot be given. Gave Motrin. Getting tapering down of the steroids. Fall precaution. Urged to quit smoking. The patient is a resident of [facility]. Trying to get to rehabilitation. Repeat labs. We will follow up. Deandra García MD [facility] # [id number]
--- NOTE | 2018-02-21 01:23 | CON ---
DATE: 02/20/2018 HEMATOLOGY CONSULTATION HISTORY OF PRESENT ILLNESS: This is a 52-year-old man who I saw once about a week ago and he is now in the hospital for dialysis. The patient states that he was in the [facility] last month and who had a kidney biopsy which shows amyloidosis of the kidney. The patient states that he has been feeling in retrospect poorly from the last year or year and half with more tiredness, more weakness, was not seeing any doctors until he was admitted to [facility] for some changes in mentation. He just was not remembering things and at that point he was in renal insufficiency and with the biopsy, he is now coming in again for the same reason, just weakness. PHYSICAL EXAMINATION: SKIN: No petechia, no bruises. HEENT: Anicteric. NODES: Nonpalpable in the axillary, cervical, supraclavicular, inguinal regions. LUNGS: Clear at present. No vertebral tenderness. Patient is able to lie flat in bed. HEART: S1 and S2. ABDOMEN: Shows no liver, no spleen, no tenderness. No rebound. No ascites. EXTREMITIES: No edema. GRANTS ASSISTANT: No focal findings. IMPRESSION AND PLAN: The patient is in renal failure and is now undergoing dialysis. I told him that I would review the pathology on the kidney and we may decide to start him on chemotherapy for that directed towards multiple myeloma treatment. I will review it. In the meantime, once he is stable and he can have his treatments as an outpatient, I will be seeing him; he has an appointment to see me in 2 weeks in the office. Abdelrahman Tyler MD
[2018-02-21] MEDS: Levothyroxine 50 MCG TAB PO SCH (05:55)
[2018-02-21] MEDS: oxyCODONE 20 mg ER Tab (oxyCONTIN) PO PRN (05:59)
--- NOTE | 2018-02-21 06:46 | CP.PCM.PN ---
Subjective - Date & Time of Evaluation Date of Evaluation: 02/21/18 Time of Evaluation: 06:40 - Subjective Subjective: Awake, alert,oriented x 3,appropriately answering to questions, no distress, calm Reason for consultation and follow up: Cardiac evaluation for syncope, history of amyloidosis, End stage renal disease on hemodialysis since January 2018. combative behaviour ( was placed on 4 point leather restraints), altered mental status, hypothyroidism. Seen and examined by me and Dr. Maxwell Objective - Vital Signs/Intake and Output Vital Signs (last 24 hours): Temp Pulse Resp BP Pulse Ox 98.4 F 79 18 150/95 H 99 02/20/18 06:00 02/20/18 06:00 02/20/18 06:00 02/20/18 06:00 02/20/18 06:00 Intake and Output: 02/20/18 02/21/18 18:59 06:59 Output Total 200 Balance -200 - Medications Medications: Current Medications Albuterol/Ipratropium (Duoneb 3 Mg/0.5 Mg (3 Ml) Ud) 3 ml IH [id number] PRN PRN Reason: Shortness of Breath Apixaban (Eliquis) 5 mg PO BID MIKE PRN Reason: Protocol Azithromycin (Zithromax) 500 mg PO DAILY [facility] Stop: 02/21/18 10:01 Last Admin: 02/20/18 09:39 Dose: 500 mg Calcium Acetate (Phoslo) 667 mg PO WM [facility] Last Admin: 02/20/18 17:50 Dose: 667 mg Docusate Sodium (Colace) 100 mg PO DAILY [facility] Last Admin: 02/20/18 09:37 Dose: 100 mg Doxercalciferol (Hectorol) 1 mcg IV MWF [facility] Last Admin: 02/20/18 16:46 Dose: 1 mcg Folic Acid (Folic Acid) 1 mg PO DAILY [facility] Last Admin: 02/20/18 09:37 Dose: 1 mg Gabapentin (Neurontin) 300 mg PO TID MIKE PRN Reason: Protocol Last Admin: 02/20/18 17:50 Dose: 300 mg Cefepime HCl 0.5 gm/ Sodium (Chloride) 100 mls @ 100 mls/hr IVPB DAILY MIKE PRN Reason: Protocol Last Admin: 02/20/18 09:38 Dose: 100 mls/hr Levothyroxine Sodium (Synthroid) 50 mcg PO 0600 [facility] Last Admin: 02/21/18 05:55 Dose: 50 mcg Lorazepam (Ativan) 1 mg IVP Q6H PRN; Protocol PRN Reason: Agitation Multivitamins/Minerals (Therapeutic-M Tab) 1 tab PO 0800 [facility] Last Admin: 02/20/18 08:47 Dose: 1 tab Oxycodone HCl (Oxycontin Extended Release Tab) 60 mg PO Q8H PRN PRN Reason: Pain, severe (8-10) Last Admin: 02/21/18 05:59 Dose: 60 mg Thiamine HCl (Vitamin B1 Tab) 50 mg PO DAILY [facility] Last Admin: 02/20/18 09:39 Dose: 50 mg Ziprasidone (Geodon Inj) 10 mg IM Q6H PRN; Protocol PRN Reason: severe agitation Last Admin: 02/19/18 08:30 Dose: 10 mg - Labs Labs: 02/20/18 07:30 02/20/18 07:30 PT 13.2 SECONDS (9.4-12.5) H 02/15/18 21:35 INR 1.15 (0.93-1.08) H 02/15/18 21:35 APTT 25.6 Seconds (25.1-36.5) 02/15/18 21:35 - Constitutional Appears: No Acute Distress - Head Exam Head Exam: NORMOCEPHALIC - Eye Exam Eye Exam: Normal appearance - ENT Exam ENT Exam: Mucous Membranes Moist - Respiratory Exam Respiratory Exam: Clear to Ausculation Bilateral, NORMAL BREATHING PATTERN - Cardiovascular Exam Cardiovascular Exam: +S1, +S2 Additional comments: right subclavian shiley - GI/Abdominal Exam GI & Abdominal Exam: Soft, Normal Bowel Sounds - Exam Additional comments: hemodialysis 3x a week - Extremities Exam Extremities Exam: Normal Capillary Refill - Neurological Exam Neurological Exam: Alert, Awake, Oriented x3 - Psychiatric Exam Psychiatric exam: Normal Affect, Normal Mood - Skin Skin Exam: Dry, Warm Assessment and Plan - Assessment and Plan (Free Text) Assessment: A 52 year old male admitted due to syncopal episode, prior to admission just had hemodialysis (MWF) history of amyloidosis, End stage renal disease on hemodialysis since January 2018. combative behaviour ( was placed on 4 point leather restraints), altered mental status, hypothyroidism. Urine positive for opiates. Plan: Calm,relax, awake and oriented x 3 No sitter No restraints Cardiac status stable No more episode of syncope On IV antibiotics for pneumonia Neuro on consult Renal on consult, on hemodialysis 3x a week Hematology on consult Continue current treatment Continue current medications Will follow up Plan and treatment discussed with Dr. Maxwell
[2018-02-21 09:00] VITALS: BP 172/96; PULSE 68; RESP 20; TEMP 98.1; O2SAT 98
[2018-02-21] MEDS: Multivitamin With Minerals Tab PO SCH (09:00)
[2018-02-21] MEDS: Cefepime 0.5 GM in Sodium Chloride 0.9% 100 ML IVPB SCH (09:02)
--- NOTE | 2018-02-21 11:05 | RAD ---
Date of service: 02/21/2018 HISTORY: back pain s/p cough COMPARISON: No prior. FINDINGS: BONES: Alignment maintained. No fracture. DISC SPACES: Disc degeneration in the mid thoracic spine with anterior osteophytes SOFT TISSUES: Normal. OTHER FINDINGS: None. IMPRESSION: No acute findings
--- NOTE | 2018-02-21 17:50 | PN ---
DATE: 02/21/2018 PULMONARY PROGRESS NOTE REFERRING PHYSICIAN: Deandra García MD. SUBJECTIVE: He is sitting up in a bed, being discharged home. Feels better. No headache. No rhinitis. No nausea. No vomiting, diarrhea, leg pain, leg swelling. OBJECTIVE: GENERAL: In no acute distress. VITAL SIGNS: Temperature is 98, heart rate IS 68, respiratory rate is 20, blood pressure 172/96, pulse ox 98% on room air. HEENT: Moist mucous membrane. No ulcer or thrush noted. NECK: Supple. No JVD. LUNGS: Have a fair airflow with few rhonchi. HEART: S1 and S2. ABDOMEN: Soft, nontender. No organomegaly. EXTREMITIES: No edema. NEUROLOGICAL: Awake and alert. Follows simple command. MEDICATIONS: Reviewed. No new changes reported. LABORATORY DATA: Reviewed. Blood sugar this morning is 79. Has a thoracic spine x-ray done today, which shows no acute finding. IMPRESSION AND PLAN: Status post syncopal episode, found to have pneumonia, renal failure, dialysis dependent, history of amyloidosis, anemia, hypothyroid, chronic lung disease. Pulmonary point of view, he is doing okay. Could be discharged home with antibiotics, inhaled bronchodilator. The patient has to stop smoking. Also urged to not to drink. Need followup with primary medical doctor. We will recommend pulmonary function test as outpatient. Should have Psychiatry followup. Fall precaution. Shila Cordero MD
== END 2018-02-21 12:20 | disposition home or self-care (01) | DRG 193 ==
LOC: ED 19:31 → ERH 22:47 → 3RSO 02-16 01:16
PROVIDERS: ADMIT Internal Medicine; ATTEND Internal Medicine
PROC: 5A1D70Z Performance of Urinary Filtration, Intermittent, Less than 6 Hours Per Day (ICD-10-PCS; principal; 2018-02-18)
DX: J18.9 Pneumonia, unspecified organism (principal); N18.6 End stage renal disease; E85.9 Amyloidosis, unspecified; F11.20 Opioid dependence, uncomplicated; N25.81 Secondary hyperparathyroidism of renal origin; J44.0 Chronic obstructive pulmonary disease with (acute) lower respiratory infection; Z99.2 Dependence on renal dialysis; S01.01XA Laceration without foreign body of scalp, initial encounter; D63.1 Anemia in chronic kidney disease; E03.9 Hypothyroidism, unspecified; E87.5 Hyperkalemia; G89.4 Chronic pain syndrome; R55 Syncope and collapse; W01.0XXA Fall on same level from slipping, tripping and stumbling without subsequent striking against object, initial encounter; R29.6 Repeated falls; R25.2 Cramp and spasm; F17.210 Nicotine dependence, cigarettes, uncomplicated; Y93.01 Activity, walking, marching and hiking; Y92.480 Sidewalk as the place of occurrence of the external cause; Z78.1 Physical restraint status; Z91.81 History of falling; Z86.718 Personal history of other venous thrombosis and embolism; Z86.711 Personal history of pulmonary embolism; Z79.01 Long term (current) use of anticoagulants; Z96.642 Presence of left artificial hip joint

== ENCOUNTER 2018-03-11 11:06 | Inpatient (IN) | payer MEDICARE, MEDICAID ==
[2018-03-11 11:22] VITALS: BMI 26.8
[2018-03-11 12:04] LABS: VENOUS BLOOD GAS BASE EXCESS -6.4 mmol/L (0.0-2.0); VENOUS BLOOD GAS PO2 104 mm/Hg (30-55); VENOUS BLOOD PH 7.28 (7.32-7.43)
--- NOTE | 2018-03-11 12:08 | RAD ---
Date of service: 03/11/2018 HISTORY: Chest Pain, Hx of Pleural Eff, Pneumonia, Dialysis COMPARISON: 02/21/2028. FINDINGS: The right-sided central venous catheter terminates in the SVC. LUNGS: The lungs are well inflated and clear. PLEURA: No significant pleural effusion identified, no pneumothorax apparent. CARDIOVASCULAR: Normal. OSSEOUS STRUCTURES: No significant abnormalities. VISUALIZED UPPER ABDOMEN: Normal. OTHER FINDINGS: None. IMPRESSION: No acute findings.
[2018-03-11 12:16] LABS: BASO # 0.04 K/mm3 (0.0-2.0); BASO % 0.5 % (0.0-3.0); EOS # 0.3 (0.0-0.7); EOS % 3.3 % (1.5-5.0); GRAN # 5.99 (1.4-6.5); GRAN % 70.4 % (50.0-68.0); HEMOGLOBIN 8.9 g/dL (14.0-18.0); LYMPH # 1.6 (1.2-3.4); LYMPH % 18.7 % (22.0-35.0); MEAN CELL VOLUME 90.6 fl (80.0-105.0); MEAN CORPUSCULAR HEMOGLOBIN 28.8 pg (25.0-35.0); MEAN CORPUSCULAR HGB CONC 31.8 g/dl (31.0-37.0); MEAN PLATELET VOLUME 10.2 fl (7.0-11.0); MONO # 0.6 (0.1-0.6); MONO % 7.1 % (1.0-6.0); RBC 3.09 10^6/uL (3.5-6.1); RED CELL DISTRIBUTION WIDTH 19.6 % (11.5-14.5); WHITE BLOOD COUNT 8.5 10^3/ul (4.5-11.0)
[2018-03-11 12:22] LABS: INR 1.14; PROTHROMBIN TIME 13.2 SECONDS (9.4-12.5)
[2018-03-11 12:24] LABS: ALB/GLOB RATIO 1.1 (1.1-1.8); ALBUMIN 3.5 g/dL (3.0-4.8); ALT/SGPT 16 U/L (7-56); AST/SGOT 39 U/L (17-59); BLOOD UREA NITROGEN 89 mg/dL (7-21); CALCIUM 7.7 mg/dL (8.4-10.5); GFR AFRICAN-AMERICAN 5; GFR NON-AFRICAN AMERICAN 4
[2018-03-11 12:26] LABS: B-TYPE NATRIURETIC PEPTIDE 14200 pg/mL (0-450); TROPONIN I < 0.01 ng/mL
[2018-03-11] MEDS ORDERED: Sodium Bicarbonate (8.4%) 50 Meq Syringe IVP ONE (12:30)
[2018-03-11] MEDS ORDERED: Dextrose 50% SYRINGE Inj (50 ml) IVP PRN (12:30)
[2018-03-11] MEDS ORDERED: Insulin Regular 1 UNITS/0.01 ML ML IVP STA (12:30)
[2018-03-11] MEDS ORDERED: Dextrose 50% SYRINGE Inj (50 ml) IVP STA (12:30)
[2018-03-11] MEDS ORDERED: Vancomycin 1gm in NS 250ml 1 GM/250 ML BAG IVPB STA (12:30)
[2018-03-11] MEDS ORDERED: Piperacillin/Tazobact 3.375 gm 100 ML IVPB STA (12:30)
--- NOTE | 2018-03-11 12:59 | ED PDOC ---
Arrival/HPI - General Chief Complaint: Chest Pain Time Seen by Provider: 03/11/18 11:17 Historian: Patient - History of Present Illness Narrative History of Present Illness (Text): 03/11/18 12:54 PGY-[address] Ace Mr. Mckeon is a 52 year old male with PMHx of amyloidosis, ESRD on HD MWF who presents to the ED today with chest pain, dizziness, and gait changes. The pt was scheduled to receive dialysis this morning, but instead was brought to the ED by his sister because of these symptoms which the patient states have been occurring for weeks. Pt was recently diagnosed with amyloidosis and renal failure in January and has been hospitalized multiple times since, most recently on 02/15 when he was admitted and treated for pneumonia with pleural effusions and had multiple PEs. Today patient complains of chest pain that is subzyphoid , non-radiating, and aching/burning in nature a/w difficulty swallowing. Pt also complains of a separate chest pain that is sharp located below the R nipple and extending to the axilla which radiates to the R scapula and is exacerbated by coughing, mild shortness of breath a/w productive cough with green sputum, as well as diziness and gait abnormalities feeling as he is having trouble maintaining his balance and his knees give out. Patient reports a history of dizziness with multiple falls in the past and states he often becomes lightheaded and faint when standing quickly from a seated position and this has caused him to fall and hit his head previously. He also complains of numbness and tingling in his L leg extending from the hip to toes that he has noticed for months, and does state that his knees frequently give out causing falls. Pt has an indwelling CVC in his R chest that was placed in January and has not been changed. The patient states that he had had plans for placement of an AV fistula which was postponed by his vascular surgeon who wanted patient to first see a director risk because of his multiple PEs before proceeding with surgery. Pt denies severe pain at site CVC insertion site, only mild pain on palpation. Pt denies fevers, chills, headaches, nausea, vomiting, diarrhea, constipation, blood in the stool Past Medical History - Provider Review Nursing Documentation Reviewed: Yes - Infectious Disease Hx of Infectious Diseases: None - Tetanus Immunization Tetanus Immunization: Unknown - Reproductive Currently Lactating: No - Cardiac Hx Cardiac Disorders: No - Pulmonary Hx Respiratory Disorders: Yes Hx Pneumonia: Yes - Neurological Hx Neurological Disorder: No - HEENT Hx HEENT Disorder: No - Renal Hx Renal Disorder: Yes Hx Renal Failure: Yes Other/Comment: Diaysis MWF - Endocrine/Metabolic Hx Endocrine Disorders: No - Hematological/Oncological Hx Blood Disorders: Yes (amylodiosis) - Integumentary Hx Dermatological Disorder: No - Musculoskeletal/Rheumatological Hx Musculoskeletal Disorders: Yes Hx Arthritis: Yes - Gastrointestinal Hx Gastrointestinal Disorders: No - Genitourinary/Gynecological Hx Genitourinary Disorders: No - Psychiatric Hx Psychophysiologic Disorder: No Hx Substance Use: No - Surgical History Hx Joint Replacement: Yes (LEFT HIP) Hx Orthopedic Surgery: Yes (BACK SX, LEFT HIP REPLACEMENT) - Anesthesia Hx Anesthesia Reactions: No Hx Malignant Hyperthermia: No - Suicidal Assessment Feels Threatened In Home Enviroment: No Family/Social History - Physician Review Nursing Documentation Reviewed: Yes Smoking Status: Former Smoker Hx Alcohol Use: Yes Hx Substance Use: No Hx Substance Use Treatment: No Allergies/Home Meds Allergies/Adverse Reactions: Allergies acetaminophen [From Tylenol] Allergy (Verified 03/11/18 14:21) URTICARIA Home Medications: Home Meds Medication Instructions Recorded Confirmed Gabapentin [Neurontin] 300 mg PO TID 11/08/15 03/11/18 Apixaban [Eliquis] 5 mg PO BID 02/16/18 03/11/18 Oxymorphone HCl [Opana ER] 15 mg PO Q8H 02/16/18 03/11/18 Apixaban [Eliquis] 5 mg PO BID 03/11/18 03/11/18 Calcium Acetate [Phoslo] 1 tab PO TID 03/11/18 03/11/18 Diclofenac Sodium [Voltaren] 1 gm TOP TID 03/11/18 03/11/18 Hydroxyzine HCl [Hydroxyzine HCl] 25 mg PO DAILY 03/11/18 03/11/18 Levothyroxine [Synthroid] 100 mcg PO DAILY 03/11/18 03/11/18 Umeclidinium Brm/Vilanterol Tr 1 puff NEB DAILY 03/11/18 03/11/18 [Anoro Ellipta 62.5-25 Mcg INH] diaZEpam [Valium] 10 mg PO BID 03/11/18 03/11/18 diaZEpam [Valium] 10 mg PO BID 03/11/18 03/11/18 hydrALAZINE [Apresoline] 25 mg PO Q8 03/11/18 03/11/18 hydrALAZINE [Apresoline] 25 mg PO Q8 03/11/18 03/11/18 oxyCODONE [oxyCONTIN Extended 10 mg PO QID PRN 03/11/18 03/11/18 Release Tab] Review of Systems - Physician Review All systems were reviewed & negative as marked: Yes - Review of Systems Constitutional: Night Sweats. absent: Fevers Eyes: absent: Vision Changes, Photophobia ENT: Sore Throat. absent: Hearing Changes, Tinnitus, Rhinorrhea, Epistaxis Respiratory: SOB, Cough, Sputum (+cough w/ green sputum) Cardiovascular: Chest Pain. absent: Palpitations, Calf Pain Gastrointestinal: absent: Abdominal Pain, Stool Changes, Constipation, Diarrhea , Vomiting, Hematochezia, Hematemesis Musculoskeletal: Back Pain Skin: Skin Lesions. absent: Laceration, Abscess (+Mild pruritis around site of catheter) Neurological: Dizziness, Gait Changes, Other (+Numbness and paresthesias of LLE from hip extending distally to toes). absent: Headache, Facial Droop Physical Exam Vital Signs Reviewed: Yes Vital Signs Temp Pulse Resp BP Pulse Ox 03/11/18 15:30 71 16 108/56 L 96 03/11/18 14:00 74 17 139/66 95 03/11/18 11:07 98.5 F 83 18 134/71 94 L Temperature: Afebrile Blood Pressure: Normal Pulse: Regular Respiratory Rate: Normal Appearance: Positive for: Uncomfortable Pain Distress: Mild Mental Status: Positive for: Alert and Oriented X 3 - Systems Exam Head: Present: Normocephalic, Abrasion (+Abrasion on scalp from fall one week ago). No: Atraumatic, Swelling, Ecchymosis Pupils: Present: PERRL Extroacular Muscles: Present: EOMI Conjunctiva: Present: Normal. No: Icteric Mouth: Present: Moist Mucous Membranes, Normal Tounge, Normal Teeth Pharnyx: Present: Normal. No: ERYTHEMA, EXUDATE Nose (External): Present: Atraumatic Respiratory/Chest: Present: Clear to Auscultation, Good Air Exchange, Other (+ Indwelling CVC on R chest wall inserting in R IJ with some surrounding erythema with very mild tenderness to palpation). No: Respiratory Distress, Accessory Muscle Use, Wheezes, Decreased Breath Sounds Cardiovascular: Present: Regular Rate and Rhythm, Normal S1, S2. No: Murmurs Abdomen: Present: Normal Bowel Sounds. No: Tenderness, Distention Upper Extremity: Present: Normal Inspection, NORMAL PULSES. No: Cyanosis, Edema Lower Extremity: Present: Normal Inspection, NORMAL PULSES. No: Edema, CALF TENDERNESS Neurological: Present: GCS=15, CN II-XII Intact, Motor Func Grossly Intact, Normal Sensory Function, Normal Cerebellar Funct Skin: Present: Warm, Dry, Normal Color. No: Rashes Psychiatric: Present: Alert, Oriented x 3, Normal Insight Medical Decision Making ED Course and Treatment: 1) Suspected bacteremia/sepsis in absence of SIRS criteria in patient with ESRD on HD * STAT blood cultures * CXR - RLL inflitrates with numerous air bronchograms * Empiric Abx for ASP pneumonia vs CRBSI: * Vanco 1gm/250NS IV + Zosyn 3.375g IV Stat * Vascular consult for indwelling catheter assessment 2) Severe hyperkalemia in ESRD on HD * EKG: NSR with no T wave changes * Calcium gluconate, insulin regular/D50, sodium bicarb * Nephro consult for urgent HD * Repeat labs 03/11/18 16:00 - Lab Interpretations Narrative Lab Interpretation (Text): Potassium 7.0 03/11/18 15:48 Lab Results: 03/11/18 11:50 03/11/18 11:50 Lab Results 03/11/18 11:50: Sodium 143, Chloride 103, Potassium 7.0 H* D, Carbon Dioxide 20 L, Anion Gap 27 H, BUN 89 H, Creatinine 12.0 H* D, Est GFR ( Amer) 5, Est GFR (Non-Af Amer) 4, Random Glucose 81, Calcium 7.7 L, Phosphorus 16.1 H, Magnesium 1.9, Total Bilirubin 0.5, AST 39, ALT 16, Alkaline Phosphatase 64, Lactate Dehydrogenase 701 H, Total Creatine Kinase 183, Troponin I < 0.01, NT- Pro-B Natriuret Pep 85834 H, Total Protein 6.7, Albumin 3.5, Globulin 3.2, Albumin/Globulin Ratio 1.1 03/11/18 11:50: pO2 104 H, VBG pH 7.28 L, VBG pCO2 43.0, VBG HCO3 20.2 L, VBG Total CO2 21.5 L, VBG O2 Sat (Calc) 99.1 H, VBG Base Excess -6.4 L, VBG Potassium 7.9 H*, Sodium 139.0, Chloride 107.0, Glucose 76, Lactate 0.8, FiO2 21.0, Venous Blood Potassium 7.9 H* 03/11/18 11:50: PT 13.2 H, INR 1.14 03/11/18 11:50: WBC 8.5 D, RBC 3.09 L, Hgb 8.9 L, Hct 28.0 L, MCV 90.6 D, MCH 28.8, MCHC 31.8, RDW 19.6 H, Plt Count 275, MPV 10.2, Gran % 70.4 H, Lymph % ( Auto) 18.7 L, [place] % (Auto) 7.1 H, Eos % (Auto) 3.3, Baso % (Auto) 0.5, Gran # 5.99, Lymph # (Auto) 1.6, [place] # (Auto) 0.6, Eos # (Auto) 0.3, Baso # (Auto) 0.04 03/11/18 11:22: POC Glucose (mg/dL) 73 I have reviewed the lab results: Yes - RAD Interpretation Radiology Orders: 03/11/18 11:24 CHEST PORTABLE [RAD] Stat - EKG Interpretation EKG Interpretation (Text): NSR, No peaked T waves 03/11/18 15:49 Interpreted by ED Physician: Yes Type: 12 lead EKG - Medication Orders Current Medication Orders: Discontinued Medications Calcium Gluconate (Calcium Gluconate Iv) 1,000 mg IVP ONCE ONE Stop: 03/11/18 12:38 Last Admin: 03/11/18 13:07 Dose: 1,000 mg IVP Administration Document 03/11/18 13:07 SRE (Rec: 03/11/18 13:[address] [id number]) Charges for Administration # of IVP Administrations 1 Dextrose (Dextrose 50% Inj) 50 ml IVP STAT STA Stop: 03/11/18 12:31 Last Admin: 03/11/18 13:04 Dose: 50 ml IVP Administration Document 03/11/18 13:04 SRE (Rec: 03/11/18 13:04 SRE [id number]) Charges for Administration # of IVP Administrations 1 Vancomycin HCl (Vancomycin 1gm) 1 gm in 250 mls @ 167 mls/hr IVPB STAT STA PRN Reason: Protocol Stop: 03/11/18 13:59 Last Admin: 03/11/18 13:52 Dose: 167 mls/hr eMAR Start Stop Document 03/11/18 13:52 LOVE (Rec: 03/11/18 13:53 LOVE [id number]) Intravenous Solution Start Date 03/11/18 Start Time 13:53 End Date 03/11/18 End time 15:23 Total Infusion Time 90 Piperacillin Sod/Tazobactam Sod (Zosyn 3.375 In Ns 100ml) 100 mls @ 200 mls/hr IVPB STAT STA PRN Reason: Protocol Stop: 03/11/18 12:59 Last Admin: 03/11/18 13:06 Dose: 200 mls/hr eMAR Start Stop Document 03/11/18 13:06 SRE (Rec: 03/11/18 13:07 SRE [id number]) Intravenous Solution Start Date 03/11/18 Start Time 13:07 End Date 03/11/18 End time 14:00 Total Infusion Time 53 Insulin Human Regular (Humulin R) 10 units IVP STAT STA Stop: 03/11/18 12:31 Last Admin: 03/11/18 13:05 Dose: 10 units MAR Blood Glucose Document 03/11/18 13:05 SRE (Rec: 03/11/18 13:06 SRE [facility] [id number]) Blood Glucose Finger Stick Blood Glucose (70-120) 81 IVP Administration Document 03/11/18 13:05 SRE (Rec: 03/11/18 13:06 SRE [facility] [place] [id number]) Charges for Administration # of IVP Administrations 1 Sodium Bicarbonate (Sodium Bicarbonate 8.4% (50 Meq) Syringe) 50 meq IVP ONCE ONE Stop: 03/11/18 12:31 Last Admin: 03/11/18 13:04 Dose: 50 meq IVP Administration Document 03/11/18 13:04 SRE (Rec: 03/11/18 13:04 SRE [facility] [place]-[id number]) Charges for Administration # of IVP Administrations 1 Disposition/Present on Arrival - Present on Arrival Any Indicators Present on Arrival: No History of DVT/PE: No History of Uncontrolled Diabetes: No Urinary Catheter: No History of Decub. Ulcer: No History Surgical Site Infection Following: None - Disposition
[2018-03-11] MEDS ORDERED: NOREPINEPHRINE BIT/0.9 % NACL 4 MG/250 ML BAG IV ONE (15:45)
[2018-03-11] MEDS ORDERED: oxyCODONE 5 mg Immediate Release Tab PO PRN (19:17)
[2018-03-11] MEDS ORDERED: Pneumococcal 23-Valent Vaccine IM ONE (21:02)
--- NOTE | 2018-03-11 22:34 | CARD ---
APPROVED REPORT Date of service: 03/11/2018 EKG Measurement Heart [id number] <Conclusion> Poor data quality, interpretation may be adversely affected Normal sinus rhythm Normal ECG
--- NOTE | 2018-03-12 04:17 | CON ---
Copied To: Mary Jeffers MD Attending MD: Mary Jeffers MD DATE: 03/11/2018 REASON FOR CONSULTATION: Hyperkalemia, altered mental status, need for dialysis. HISTORY OF PRESENT ILLNESS: A 52-year-old male known to me from prior hospital evaluation. The patient was brought to the emergency room by sister because of decreased sensorium, altered mental status, lethargy, "feeling not well." The patient is complaining of back pain. He reports he took his oxymorphone 40 mg this morning. He is on a lot of pain medications at home including oxymorphone, oxycodone, Opana, diazepam. The patient has narcotic dependence. He denies any fever, chills. He denies any cough. He complains of some back pain. He also complains of right-sided chest pain. In the emergency room, he is found to have a blood pressure of 134/71. He is afebrile. His WBC count is 8.5, hemoglobin is 8.9, and his potassium is 7. He is also found to be profoundly acidotic with his anion gap of 20, phosphorus of 16. PAST MEDICAL AND SURGICAL HISTORY: Amyloidosis, chronic back pain, narcotic dependence, severe anemia, severe hyperphosphatemia, secondary hyperparathyroidism, pneumonia, pleural effusions, DVT, right-sided PermCath, back surgery. FAMILY HISTORY: Not available. SOCIAL HISTORY: Ex-smoker. Uses alcohol. Denies any street drugs. ALLERGIES: TYLENOL. MEDICATIONS AT HOME: Gabapentin 300 three times a day, Eliquis 5 b.i.d., oxymorphone 15 every 8 hours, PhosLo, hydroxyzine, Synthroid, oxycodone, diazepam, hydralazine. REVIEW OF SYSTEMS: All systems are reviewed, pertinent positives as mentioned in history presenting illness, rest unremarkable. PHYSICAL EXAMINATION GENERAL: Middle-aged male, lying in bed in the ER, appears groggy, arousable. VITAL SIGNS: Blood pressure 134/71, heart rate 83, respiratory rate 18, temperature 98.5. HEENT: Normocephalic, atraumatic, positive pallor. NECK: Supple, no JVD. LUNGS: Bilateral equal air entry, bilateral equal expansion, no rales appreciated. CARDIAC: S1 and S2, regular rate and rhythm, no murmur, no rub. ABDOMEN: Obese, distended, soft, nontender, bowel sounds present. EXTREMITIES: No lower extremity edema. INTAKE AND OUTPUT: Not charted. LABORATORY DATA: WBC 8.5, hemoglobin 8.9, hematocrit 28, platelets 275. Sodium 143, potassium 7, chloride 103, CO2 of 20, BUN 89, creatinine 12, glucose 81, calcium 7.7, phosphorus 16, magnesium 1.9, LDH 701. BNP 142,000. Albumin 3.5. Chest x-ray, no acute findings. ASSESSMENT: 1. Severe hyperkalemia. 2. Anion gap metabolic acidosis. 3. Narcotic dependence. 4. History of amyloidosis. 5. Severe anemia. 6. Severe secondary hyperparathyroidism/hyperphosphatemia. 7. Noncompliance with treatment. PLAN: 1. Urgent dialysis, 1-1/2 hours today with potassium 1 bath. 2. The patient will require full treatment tomorrow. 3. Consider Narcan. 4. Restart oral meds when the patient is awake enough to swallow. 5. Limit pain medication. Mary Jeffers MD
[2018-03-12] MEDS: Levothyroxine 100 MCG TAB PO SCH (06:20)
[2018-03-12] MEDS ORDERED: oxyCODONE 5 mg Immediate Release Tab PO STA (06:53)
[2018-03-12] MEDS ORDERED: Levothyroxine 100 MCG TAB PO SCH (10:00)
--- NOTE | 2018-03-12 10:56 | CP.PCM.PCO ---
Physician Communication Note - Physician Communication Note Physician Communication Note: pt was in the radiology dept, will f/u tomorrow
--- NOTE | 2018-03-12 15:35 | HP ---
03/12/18 Copied To: Deandar García MD Attending MD: Deandra García MD CHIEF COMPLAINTS: Feeling fatigue and tired. HISTORY OF PRESENT ILLNESS: Mr. Rishabh Mckeon, 52-year-old male with multiple medical problems. Came with hyperkalemia, altered mental status. Needs emergency dialysis. The patient was brought to the emergency room by the sister because of decreased sensorium, altered mental status and lethargy, feeling not well. The patient is complaining of back pain. Reports he took his oxymorphone 40 mg in the morning. He is on a lot of pain medications, getting from Pain Management, oxymorphone, oxycodone, Opana, diazepam. The patient has narcotic dependency. No fever. No chills. No hematuria. No hematochezia. We admitted the patient, gave emergency dialysis and we will get another dialysis. Nephrology consult called. PAST MEDICAL HISTORY: Amyloidosis, chronic back pain, narcotic dependency, severe anemia, severe hyperphosphatemia, secondary hyperparathyroidism, pneumonia, pleural effusion, DVT, right-sided PermCath, back surgery. FAMILY HISTORY: Father and mother, noncontributory. HABITS: Ex-smoker. Uses alcohol. Denies any street drugs. ALLERGIES: THE PATIENT IS ALLERGIC WITH TYLENOL. HOME MEDICATIONS: Reviewed by me. REVIEW OF SYSTEMS: The patient was seen and examined on the bedside. Feeling fatigue and tired, lethargy. No fever. No chills. No hematuria. No hematochezia. No headache. No dizziness. Sometime coughing and having shortness of breath. PHYSICAL EXAMINATION: VITAL SIGNS: Temperature 98.6, blood pressure 130/79, heart rate 80, respiratory rate 18. HEENT: Head normocephalic, atraumatic. Eyes PERRLA. Extraocular muscles intact. Conjunctivae clear. Nose patent. Mucous membrane moist. NECK: Supple. No carotid bruit. No JVD or thyromegaly. CHEST: Bilaterally symmetrical. HEART: S1 and S2 positive. LUNGS: Wheezing bilaterally. ABDOMEN: Soft. Bowel sounds positive. No organomegaly. EXTREMITIES: No edema. No cyanosis. NEUROLOGICAL: The patient is awake sleepy, arousable. Moving all 4 extremities. LABORATORY DATA: White blood cells 8.5, hemoglobin 8.9, hematocrit 28, platelets 275. Sodium 143, potassium 7, BUN 89, creatinine 12, glucose 81. BNP 142,000. ASSESSMENT AND PLAN: Mr. Rishabh Mckeon, 52-year-old male with severe hyperkalemia and anion gap metabolic acidosis, narcotic dependency, history of amyloidosis, severe anemia, history of blood transfusion, severe secondary hyperparathyroidism, noncompliant with treatments, chronic pain syndrome. Urgent dialysis one and a half hours given with potassium 1 bath. Full dialysis will be done. Restarted oral medications except pain medication. Pain management team, Dr. Alvaro Guevara called. Skills Instructor, Dr. Jeffers saw the patient. History of pneumonia with pleural effusion. Had multiple pulmonary embolisms by history. The patient looks like has ataxia. Continue present treatment. Repeat labs. We will follow up. Deandra García MD [facility]
--- NOTE | 2018-03-12 18:29 | PN ---
Copied To: Hieu Mccauley MD Attending MD: Hieu Mccauley MD DATE: 03/12/2018 SUBJECTIVE: The patient is currently seen lying comfortable in bed on telemetry. He had part of his dialysis on 03/11/2018 and completed his dialysis today, 03/12/2018. The patient appears to be more comfortable. Last potassium level was 7 done predialysis yesterday. No labs were done today. Calcium level was 7.7 with an albumin of 3.5. Phosphorus level was through the roof at 16.1. The patient states he takes binder therapy, but this is unlikely. BUN was 89 with a creatinine of 12. MEDICATIONS: Medication list reviewed. The patient is currently on Apresoline, Atarax, Eliquis, Neurontin, PhosLo, Renagel and Synthroid. OBJECTIVE: INTAKE/OUTPUT: Intake is 720 plus dialysis. VITAL SIGNS: Blood pressure is 169/78, temperature 98, respiratory rate is 16 with a pulse of 65. HEENT: Shows him to be normocephalic, atraumatic. Conjunctivae are pale. Sclerae are nonicteric. NECK: Supple. No neck vein distention. CHEST: Clear to auscultation and percussion. No rales, rhonchi or wheezing. Positive PermCath, right chest wall. CARDIOVASCULAR: Shows a normal S1, S2 without murmurs, rubs or gallops. ABDOMEN: Soft. Bowel sounds normal. No rebound, guarding or masses. EXTREMITIES: Show no lower extremity cyanosis, clubbing or edema. LABORATORY DATA AND IMAGING: CBC on admission: White count 8.5, hemoglobin 8.9, platelet count is 275,000. Chemistries as noted above. BUN 89 with a creatinine of 12. Predialysis potassium yesterday was 7. Calcium 7.7 with a phosphorus level of 16.1. LDH is elevated at 701. BNP was elevated at 14,200. Microbiology: Blood cultures are negative at 24 hours. ASSESSMENT: 1. End-stage renal disease. The patient will continue three times a week dialysis. He is a Sunday, Sunday, Sunday dialysis patient at [facility]. 2. History of amyloidosis, likely because of his chronic kidney disease. 3. History of multiple falls, syncope, confusion and agitation. The patient appears to be at baseline presently. 4. History of chronic opiate dependence and chronic pain syndrome. 5. History of hypercoagulability with deep venous thromboses. The patient is back on Eliquis understanding that this is risky given his predisposition for falling. 6. Hypothyroidism. The patient will continue Levoxyl therapy. He is currently on 100 mcg a day. 7. History of severe secondary hyperparathyroidism. It is completely not clear to me that the patient is compliant with his binder therapy or his renal diet at home. PLAN: 1. Continue to monitor the patient on telemetry. 2. The patient will receive his routine hemodialysis treatment tomorrow. 3. Continue renal diet and binder therapy. 4. The patient will likely follow up with his outpatient weigher and grader, upon discharge. 5. Stressed compliance with dialysis, medications and dietary restrictions. Hieu Mccauley MD
[2018-03-12] MEDS: Budesonide 0.5 mg/2 ml Inhal Susp UD IH SCH (19:56)
[2018-03-12] MEDS: Arformoterol 15 mcg/2 ml Inh Sol IH SCH (19:56)
--- NOTE | 2018-03-12 23:48 | PN ---
Copied To: Deandra García MD Attending MD: Deandra García MD DATE: 03/12/2018 SUBJECTIVE: The patient is seen and examined at the bedside in the telemetry, looking comfortable, but complaining about pain, went for dialysis today. No hematuria. No hematochezia. No swelling of the legs. No chest pain. No palpitation. No headaches. No dizziness. PHYSICAL EXAMINATION: VITAL SIGNS: Temperature 98.6, blood pressure 159/70, respiratory rate 16, pulse 65. HEENT: Head normocephalic, atraumatic. Eyes PERRLA. Extraocular muscles intact. Conjunctivae clear. Nose patent. Mucous membrane moist. NECK: Supple. No carotid bruit. No JVD or thyromegaly. CHEST: Bilaterally symmetrical. HEART: S1 and S2 positive. LUNGS: Positive wheezing bilaterally. ABDOMEN: Soft. Bowel sounds positive. No organomegaly. EXTREMITIES: No edema. No cyanosis. No clubbing. LABORATORY DATA: White blood cells 8.5, hemoglobin 8.9, platelets 275,000. BUN 89, creatinine 12, calcium 7.7. BNP 14,200. ASSESSMENT AND PLAN: Mr. Mike Keating is a [id number] male with endstage renal disease, on dialysis 3 times a week, Sunday, Sunday and Sunday; history of amyloidosis likely because of his chronic kidney disease, multiple falls, syncopal attack, confusion, agitation, chronic pain syndrome, pain medication addiction, history of hypercoagulable state with deep vein thrombosis, patient is back on Eliquis, hypothyroidism, taking Levoxyl 100 mcg daily, history of severe secondary hyperparathyroidism. Continue monitoring the patient's telemetry. The patient was requesting pain medication; I restarted medication and consulted Dr. Alvaro Guevara, Pain Management. The patient got dialysis today. Continue renal diet. The patient is noncompliant, urged to be compliant, seen by Dr. Alexis, psychiatrist, Dr. Hieu Mccauley, chief of staff. Gastrointestinal and deep venous thrombosis prophylaxis. Repeat labs. We will followup. Deandra García MD [facility] # [id number]
--- NOTE | 2018-03-13 04:15 | CON ---
Copied To: Shila Cordero MD Attending MD: Shila Cordero MD DATE: 03/12/2018 REFERRING PHYSICIAN: Deandra García MD REASON FOR CONSULT: Cough, shortness of breath. HISTORY OF PRESENT ILLNESS: This is a 52-year-old gentleman with known history of renal failure, dialysis dependent, chronic pain syndrome, opiates dependent, history of amyloidosis, hyperparathyroidism, history of pneumonia, DVT, comes into emergency room with cough, shortness of breath, upper back pain. No hemoptysis, no hematemesis, no hematuria, no diarrhea reported. PAST MEDICAL HISTORY: As per history of present illness. SOCIAL HISTORY: He is smoker. Denied any alcohol use. ALLERGIES: TO TYLENOL. FAMILY HISTORY: No significant cardiopulmonary disease reported. MEDICATIONS: He is on hydralazine 25 mg every 8 hours, Atarax 25 mg daily, Eliquis 5 mg twice a day, gabapentin 300 mg three times a day, oxycodone immediate release 5 mg three times a day, Renagel 1600 mg three times a day, Synthroid 100 mcg daily. REVIEW OF SYSTEM: No headache. No rhinitis. Has a cough, some sputum production. No chest pain. No nausea, no vomiting, no diarrhea. Has a back pain, which is chronic. No leg pain or leg swelling. PHYSICAL EXAMINATION: GENERAL: Lying in the bed, in no acute distress. VITAL SIGNS: Temperature is 98, heart rate is 68, respiratory rate 16, blood pressure 135/76, pulse ox 99% on room air. HEENT: Moist mucous membrane. Crowded airway. NECK: Supple. No JVD. LUNGS: Have scattered rhonchi and wheezing. HEART: S1 and S2. ABDOMEN: Soft, nontender. No organomegaly. EXTREMITIES: There is no edema. NEUROLOGICAL: Awake, alert. Follows simple commands. LABORATORY DATA: Shows hemoglobin 8.9, hematocrit 28, WBC 8.5, platelet is 275. INR 1.14. VBG show pH 7.28, pCO2 of 43, O2 is 104. Sodium 143, potassium 7, chloride 103, bicarbonate 20, BUN 89, creatinine 12. Glucose 81, calcium is 7.7, phosphorus 16, magnesium 1.9, AST 39, ALT 16, alk phos is 64. Troponin less than 0.01. ProBNP 67234. Albumin is 3.5. Microbiology: Blood culture, there is no growth. Chest x-ray shows no infiltrate or effusion. IMPRESSION AND PLAN: Chronic obstructive lung disease, severe electrolyte imbalance, renal failure, dialysis dependent, metabolic acidosis, opiates dependent, history of amyloidosis, anemia, chronic obstructive lung disease, active smoker, hypothyroid. The patient will be seen by Psychiatry, also pain management, consult of Dr. Guevara was requested. Continue inhaled bronchodilator. Keep head at 45 degrees. The patient is urged to stop smoking. Nephrology followup. Will need outpatient pulmonary function test. Thank you and we will follow with you. Shila Cordero MD
[2018-03-13] MEDS: Levothyroxine 100 MCG TAB PO SCH (05:59)
[2018-03-13] MEDS: Arformoterol 15 mcg/2 ml Inh Sol IH SCH ×2 (07:45→19:29)
[2018-03-13] MEDS: Budesonide 0.5 mg/2 ml Inhal Susp UD IH SCH ×2 (07:46→19:29)
[2018-03-13] MEDS ORDERED: oxyCODONE 5 mg Immediate Release Tab PO SCH (10:00)
[2018-03-13] MEDS ORDERED: Oxycodone/Acetaminophen 10/325 mg Tab PO STA ×2 (13:04→23:03)
--- NOTE | 2018-03-13 13:53 | CT ---
Date of service: 03/13/2018 PROCEDURE: CT HEAD WITHOUT CONTRAST. HISTORY: dizziness COMPARISON: 02/17/2018 TECHNIQUE: Axial computed tomography images were obtained through the head/brain without intravenous contrast. Radiation dose: Total exam DLP = 1065 mGy-cm. This CT exam was performed using one or more of the following dose reduction techniques: Automated exposure control, adjustment of the mA and/or kV according to patient size, and/or use of iterative reconstruction technique. FINDINGS: HEMORRHAGE: No intracranial hemorrhage. BRAIN: No mass effect or edema. No atrophy or chronic microvascular ischemic changes. VENTRICLES: Unremarkable. No hydrocephalus. CALVARIUM: Unremarkable. PARANASAL SINUSES: Unremarkable as visualized. No significant inflammatory changes. MASTOID AIR CELLS: Unremarkable as visualized. No inflammatory changes. OTHER FINDINGS: None. IMPRESSION: No acute findings
[2018-03-13] MEDS: Oxycodone/Acetaminophen 10/325 mg Tab PO SCH ×2 (14:00→18:24)
--- NOTE | 2018-03-13 15:43 | PN ---
Copied To: Shila Cordero MD Attending MD: Shila Cordero MD DATE: 03/13/2018 PULMONARY PROGRESS NOTE REFERRING PHYSICIAN: Deandra García MD SUBJECTIVE: He is lying in the bed, head at 45 degrees. Night was unremarkable. Had right-sided some pleural pain. No nausea, no vomiting, no diarrhea. No leg pain or leg swelling. OBJECTIVE GENERAL: In no acute distress. VITAL SIGNS: Temperature is 98, heart rate is 69, respiratory rate is 20, blood pressure 162/91, pulse ox 97% on room air. HEENT: Moist mucous membrane. No ulcer or thrush noted. NECK: Supple. No JVD. LUNGS: Have a fair airflow with rhonchi. HEART: S1 and S2. ABDOMEN: Soft, nontender. No organomegaly. EXTREMITIES: No edema. NEUROLOGICAL: Awake and alert. Follows simple command. MEDICATIONS: He is on hydralazine 25 mg every 8 hours, Atarax 25 mg daily, Brovana inhaled twice a day, Eliquis 5 mg twice a day, gabapentin 300 mg three times a day, Percocet 10/325 one tablet every 8 hours, PhosLo is with the meals, Pulmicort inhale twice a day, Renagel with the meals, Synthroid 100 mcg daily. LABORATORY DATA: Reviewed and noted. Last potassium was 7, had dialysis yesterday, pending dialysis today. Microbiology: Blood culture has been negative. IMPRESSION AND PLAN: Chronic obstructive lung disease, history of pneumonia, probably has a right-sided pleurisy, electrolyte imbalance with hyperkalemia, metabolic acidosis, opioids dependent, history of amyloidosis, anemia, active smoker, hypothyroid. I spoke to nursing staff. I also spoke to CALL BOX WIRER. The patient will have a dialysis today. Hopefully, we will get potassium after dialysis. Awaiting to be seen with pain management, his PMD who has pain management outside, done not have privileges here. For now, continue Percocet, bronchodilator. Urged the patient to stop smoking. Once the potassium is normal after dialysis, the patient could be transferred to Med-Surg floor. Thank you and we will follow with you. Shila Cordero MD
[2018-03-13 15:48] LABS: HEMOGLOBIN 8.7 g/dL (14.0-18.0); MEAN CELL VOLUME 90.9 fl (80.0-105.0); MEAN CORPUSCULAR HEMOGLOBIN 29.2 pg (25.0-35.0); MEAN CORPUSCULAR HGB CONC 32.1 g/dl (31.0-37.0); MEAN PLATELET VOLUME 10.1 fl (7.0-11.0); RBC 2.98 10^6/uL (3.5-6.1); RED CELL DISTRIBUTION WIDTH 19.3 % (11.5-14.5); WHITE BLOOD COUNT 6.7 10^3/ul (4.5-11.0)
[2018-03-13 16:15] LABS: ALBUMIN 3.2 g/dL (3.0-4.8); CALCIUM 7.9 mg/dL (8.4-10.5)
--- NOTE | 2018-03-13 18:21 | PN ---
Copied To: Mary Jeffers MD Attending MD: Mary Jeffers MD DATE: 03/13/2018 SUBJECTIVE: The patient is seen lying in bed. He is groggy. PHYSICAL EXAMINATION: GENERAL: Elderly male lying in bed. VITAL SIGNS: Blood pressure 146/72, heart rate 57, respiratory rate 20, temperature 98. HEENT: Normocephalic, atraumatic. NECK: Supple, no JVD. LUNGS: Bilateral equal air entry, bilateral equal expansion. CARDIAC: S1 and S2, regular rate and rhythm, no murmur, no rub. EXTREMITIES: No lower extremity edema. LABORATORY DATA: Hemoglobin 8.7. Sodium 142, potassium 5.2, chloride 101, CO2 29, BUN 48, creatinine 8.2, glucose 89, calcium 7.9, phosphorus 8.9, albumin 3.2. Blood cultures no growth. MEDICATIONS: List reviewed. ASSESSMENT: 1. Severe hyperkalemia, resolved. 2. Hypertension. 3. End-stage renal disease. 4. Anemia of chronic kidney disease. 5. History of amyloidosis. 6. Severe hyperphosphatemia. PLAN: 1. Dialysis today, today is his regular day. 2. Limit pain medications. 3. No objection to discharge from the renal standpoint. Mary Jeffers MD : 03/13/2018 16:41:21
[2018-03-13 19:04] LABS: WHITE BLOOD COUNT 7.1 10^3/ul (4.5-11.0)
[2018-03-13 19:05] LABS: HEMOGLOBIN 8.7 g/dL (14.0-18.0); MEAN CELL VOLUME 90.1 fl (80.0-105.0); MEAN CORPUSCULAR HEMOGLOBIN 28.6 pg (25.0-35.0); MEAN CORPUSCULAR HGB CONC 31.8 g/dl (31.0-37.0); MEAN PLATELET VOLUME 10.2 fl (7.0-11.0); RBC 3.04 10^6/uL (3.5-6.1); RED CELL DISTRIBUTION WIDTH 19.2 % (11.5-14.5)
[2018-03-13 19:06] LABS: BASO # 0.04 K/mm3 (0.0-2.0); BASO % 0.6 % (0.0-3.0); EOS # 0.1 (0.0-0.7); GRAN # 5.36 (1.4-6.5); GRAN % 75.4 % (50.0-68.0); LYMPH # 1.1 (1.2-3.4); MONO # 0.5 (0.1-0.6)
[2018-03-13 19:16] LABS: ALBUMIN 3.2 g/dL (3.0-4.8)
[2018-03-14 00:05] VITALS: RESP 20
--- NOTE | 2018-03-14 02:59 | PN ---
Copied To: Deandra García MD Attending MD: Deandra García MD DATE: 03/13/2018 SUBJECTIVE: The patient is 52-year-old male. The patient was seen and examined at the bedside, complaining about pain. Night was unremarkable. Has right-sided pleural effusion. No nausea. No vomiting. No fever. No chills. No hematuria. No hematochezia. No headache. No dizziness. PHYSICAL EXAMINATION: VITAL SIGNS: Temperature 98, heart rate 69, respiratory rate 20, blood pressure 150/90, pulse ox 97% on room air. HEENT: Head normocephalic, atraumatic. Eyes PERRLA. Extraocular muscles intact. Conjunctivae clear. Nose patent. Mucous membrane moist. NECK: Supple. No carotid bruit. No JVD or thyromegaly. CHEST: Bilaterally symmetrical. HEART: S1 and S2 positive. LUNGS: Clear to auscultation. ABDOMEN: Soft. Bowel sounds positive. No organomegaly. EXTREMITIES: No edema. No cyanosis. NEUROLOGIC: The patient is awake, alert, follows simple commands. MEDICATIONS: Hydralazine, Atarax, Brovana, Eliquis, gabapentin, Percocet, Pulmicort, Reglan, Synthroid. LABORATORY DATA: We do not have recent lab today, but today we have reviewed old labs. ASSESSMENT AND PLAN: Mr. Rishabh Mckeon is a 52-year-old male with chronic obstructive lung disease, history of pneumonia, right-sided pleural effusion, pleurisy, electrolyte imbalance, hyperkalemia, metabolic acidosis, opiate dependence, history of amyloidosis, anemia, active smoker, hypothyroidism. The patient was not very happy with his pain management. We consulted Dr. Guevara 2 days ago, but the patient was not seen. Today, I spoke to the patient's pain management doctor, Dr. Hernandez and after discussion with him and nurse practitioner, I started the patient on Percocet 10/325 one tablet 3 times a day and Valium 5 mg at night. Gastrointestinal and deep venous thrombosis prophylaxis. Repeat labs. Tapering the steroids. We will follow. Deandra García MD [facility] # [id number] [facility]
[2018-03-14] MEDS: Levothyroxine 100 MCG TAB PO SCH (05:31)
[2018-03-14 05:35] VITALS: BP 164/89
--- NOTE | 2018-03-14 05:50 | CON ---
Copied To: Shayna Alexis MD Attending MD: Shayna Alexis MD DATE: 03/13/2018 HISTORY OF PRESENT ILLNESS: Shortly, the patient is a 52-year-old male with newly diagnoses of amyloidosis; end-stage renal disease, on hemodialysis. The patient was admitted on the medical site for chest pain. Psych consult was called for evaluation of possible depression. This fiction writer is very familiar with this patient from the previous admission when the patient was refusing to have dialysis and was in delirium stage. The patient was seen today. The patient presented very well to compare to the previous admission. The patient presented to be alert and oriented, pleasant, cooperative. The patient does not remember this fiction writer from the previous admission. The patient reports that he still lives in [facility]. The patient reports that medical issues give him transient symptoms of depression, but the patient denied any hopelessness. The patient has some hopes for bone marrow transplant. The patient wants to have that done at [facility]. The patient reported that he does not feel any hopelessness or helplessness. The patient denied feeling anxious. The patient reports that he fills his medications at [facility] [phone], called in, confirmed the medications. The only concerns the patient has is his pain medication, which seems to be oxycodone 15 mg daily, diazepam 10 mg daily, oxymorphone 40 mg every [address] The patient has Dr. David Hernandez as his pain management doctor. This fiction writer provided medication list to the medical team. Dr. García was advised to continue medication if the patient has no contraindications. Besides that, vital signs are stable. Temperature 98.4, pulse is 69, blood pressure 162/91, respirations 17, oxygen saturation is 97. MEDICATIONS: Reviewed. The patient is on Eliquis, Brovana, Pulmicort, PhosLo, Neurontin, hydralazine, Atarax, Synthroid, Percocet, Renagel. LABORATORY DATA: Labs reviewed. Hemoglobin and hematocrit 8.7 and 27.1. Coagulation reviewed. Blood gas reviewed. Chemistry reviewed. Creatinine is climbing up 8.2, but the patient has chronic kidney disease as well as on dialysis. Potassium 5.2. Microbiology reviewed, no growths so far. MENTAL STATUS EXAMINATION: The patient presented to be alert and oriented, pleasant, cooperative. Fair eye contact. Mood described as "I have some hopes for bone marrow transplant." Thought process of the patient is goal directed. Thought content, the patient denied visual, auditory or tactile hallucinations. Denies paranoid ideation. The patient denied thoughts of harming himself or others. Denied intents or plan. Insight and judgment seems to be fair. Impulses are well controlled. IMPRESSION: Rule out mood disorder due to general medical condition, rule out adjustment disorder with depressed and anxious mood. PLAN: Continue current management. There is no need for the patient to be on any psychotropic medication. Medications were confirmed, provided to the medical team. The patient denied any thoughts of harming himself or others. There is no behavioral issues. This fiction writer will sign off. The patient is not in any imminent danger to hurt himself or others. Should you have any questions, give me a call back. Discussed with Dr. García. Thank you very much for letting me participate in care of your patient. Shayna Alexis MD
[2018-03-14 06:17] VITALS: TEMP 98.5; O2SAT 98
[2018-03-14 06:38] LABS: HEMOGLOBIN 9.1 g/dL (14.0-18.0); MEAN CELL VOLUME 89.2 fl (80.0-105.0); MEAN CORPUSCULAR HGB CONC 32.5 g/dl (31.0-37.0); MEAN PLATELET VOLUME 9.7 fl (7.0-11.0); RBC 3.14 10^6/uL (3.5-6.1); RED CELL DISTRIBUTION WIDTH 18.9 % (11.5-14.5)
[2018-03-14 06:52] LABS: CALCIUM 8.2 mg/dL (8.4-10.5)
[2018-03-14] MEDS: Budesonide 0.5 mg/2 ml Inhal Susp UD IH SCH (07:38)
[2018-03-14] MEDS: Arformoterol 15 mcg/2 ml Inh Sol IH SCH (07:38)
[2018-03-14] MEDS: Oxycodone/Acetaminophen 10/325 mg Tab PO SCH (10:19)
[2018-03-14 11:09] VITALS: PULSE 53
--- NOTE | 2018-03-14 15:07 | PN ---
Copied To: Mary Jeffers MD Attending MD: Mary Jeffers MD DATE: 03/14/2018 SUBJECTIVE: The patient is seen lying in bed. He is awake. He is alert. He is comfortable. PHYSICAL EXAMINATION: GENERAL: Middle-aged male, lying in bed. VITAL SIGNS: Blood pressure 164/89, heart rate 65, respiratory rate 20, temperature 98.5. HEENT: Normocephalic, atraumatic, positive pallor. NECK: Supple, no JVD. LUNGS: Bilateral equal air entry, bilateral equal expansion, no rales. EXTREMITIES: No lower extremity edema. INTAKE AND OUTPUT: Not charted. LABORATORY DATA: WBC 7, hemoglobin 9, hematocrit 28, platelets 180. Sodium 139, potassium 4.9, chloride 102, CO2 of 26, BUN 27, creatinine 6.5, glucose 95, calcium 8.2. Blood cultures, no growth. MEDICATIONS: List reviewed. ASSESSMENT: 1. Severe hyperkalemia, resolved. 2. Altered mental status secondary to excessive pain medication. 3. Chronic obstructive pulmonary disease. 4. End-stage renal disease. 5. Hypertension. 6. Amyloidosis. PLAN: 1. The patient had dialysis treatment yesterday. 2. Needs better blood pressure control, can be fine tuned as outpatient. 3. Needs close followup with Pain Management and Psychiatry. Mary Jeffers MD
--- NOTE | 2018-03-15 00:02 | DS ---
date 03/14/18 Copied To: Deandra García MD Attending MD: Deandra García MD CHIEF COMPLAINT: Feeling fatigued and tired. HISTORY OF PRESENT ILLNESS: Mr. Rishabh Mckeon, 52-year-old male with multiple medical problems. Came with hyperkalemia, altered mental status. Need emergency dialysis. The patient was brought to the emergency room by the sister because of decreased sensorium, altered mental status and lethargy. The patient was not well. The patient is complaining of back pain. Reports that he took his oxymorphone 40 mg in the morning, getting from pain management doctor, Dr. Hernandez. Even, I spoke to Dr. Hernandez by myself. We admitted the patient, gave emergency dialysis. Seen by psychiatrist, Dr. Shayna Alexis. CAT scan of the head was done. Dr. Jeffers was the patient's sewer maintenance supervisor, who gave dialysis orders. The patient was having problem with breathing. Seen by Dr. Cordero, covering and lining supervisor. Improved, discharged home on 03/14/2018. Follow up with his own pain management. PAST MEDICAL HISTORY: As above, amyloidosis, chronic back pain, narcotic dependency, severe anemia, severe hyperphosphatemia, secondary hyperparathyroidism, pneumonia, pleural effusion, DVT, right-sided PermCath, back surgery. FAMILY HISTORY: Father and mother, noncontributory. HABITS: Ex smoker. Uses alcohol. Denies any street drugs, but has narcotic dependency. ALLERGIES: THE PATIENT IS ALLERGIC WITH TYLENOL. HOME MEDICATIONS: Reviewed by me. REVIEW OF SYSTEMS: The patient was seen and examined on the bedside, looking comfortable. No fever. No chills. No headache. No dizziness. No chest pain. No palpitation. No shortness of breath. He is awake and alert and comfortable. Ready to go home. PHYSICAL EXAMINATION: VITAL SIGNS: Blood pressure 164/89, heart rate 65, respiratory rate 20, temperature 98.5. HEENT: Head normocephalic, atraumatic. Eyes PERRLA. Extraocular muscles intact. Conjunctivae clear. Nose patent. Mucous membrane moist. NECK: Supple. No carotid bruit. No JVD. No thyromegaly. CHEST: Bilaterally symmetrical. HEART: S1 and S2 positive. LUNGS: Clear to auscultation. ABDOMEN: Soft. Bowel sounds positive. No organomegaly. EXTREMITIES: No edema. No cyanosis. NEUROLOGICAL: The patient is awake and alert. Moving all 4 extremities. No focal deficits. MEDICATIONS: Hydralazine, Atarax, Brovana, Eliquis, Neurontin, oxycodone, Pulmicort, Synthroid, Valium. LABORATORY DATA: White blood cells 7, hemoglobin 9.1, hematocrit 28, platelets 180. Sodium 139, potassium 4.9, BUN 27, creatinine 6.5, calcium 8.2. ASSESSMENT AND PLAN: Mr. Rishabh Mckeon, 52-year-old male with anemia; hyperkalemia, improved; hypocalcemia; history of amyloidosis; renal insufficiency, getting hemodialysis 3 times a week; altered mental status secondary excessive pain medication; chronic obstructive lung disease; hypertension, need better blood pressure control. Needs close followup with Pain Management and Psychiatry. Urged to decrease pain medication. The patient is noncompliant, urged to be compliant. Sometimes, he is missing dialysis. Dr. Nye is the patient's sewer maintenance supervisor. History of metabolic acidosis, opiate dependency, active smoker, hypothyroidism. Continue pain management with Dr. Hernandez. Repeat labs. Follow up as outpatient. We will follow up. Deandra García MD MTDD
== END 2018-03-14 12:16 | disposition home or self-care (01) | DRG 640 ==
LOC: ED 11:06 → ERH 13:48 → 2RSO 18:56
PROVIDERS: ADMIT Internal Medicine Nephrology; ATTEND Internal Medicine
PROC: 5A1D70Z Performance of Urinary Filtration, Intermittent, Less than 6 Hours Per Day (ICD-10-PCS; principal; 2018-03-11)
PROC: 5A1D70Z Performance of Urinary Filtration, Intermittent, Less than 6 Hours Per Day (ICD-10-PCS; 2018-03-12)
PROC: 5A1D70Z Performance of Urinary Filtration, Intermittent, Less than 6 Hours Per Day (ICD-10-PCS; 2018-03-13)
DX: E87.5 Hyperkalemia (principal); N18.6 End stage renal disease; I12.0 Hypertensive chronic kidney disease with stage 5 chronic kidney disease or end stage renal disease; F11.20 Opioid dependence, uncomplicated; N25.81 Secondary hyperparathyroidism of renal origin; E85.9 Amyloidosis, unspecified; E87.2 Acidosis; J44.9 Chronic obstructive pulmonary disease, unspecified; E83.51 Hypocalcemia; D63.1 Anemia in chronic kidney disease; E03.9 Hypothyroidism, unspecified; F17.200 Nicotine dependence, unspecified, uncomplicated; Z96.642 Presence of left artificial hip joint; G89.4 Chronic pain syndrome; R27.0 Ataxia, unspecified; E83.39 Other disorders of phosphorus metabolism; Z86.711 Personal history of pulmonary embolism; Z87.01 Personal history of pneumonia (recurrent); Z91.15 Patient's noncompliance with renal dialysis; Z88.6 Allergy status to analgesic agent; Z91.81 History of falling; Z99.2 Dependence on renal dialysis; Z79.01 Long term (current) use of anticoagulants

== ENCOUNTER 2018-11-19 08:58 | Day surgery (SDC) | payer MEDICARE, MEDICAID ==
[2018-11-18 09:01] VITALS: BMI 28.8
[2018-11-19 09:56] LABS: BASO # 0.03 K/mm3 (0.0-2.0); BASO % 0.2 % (0.0-3.0); EOS # 0.3 (0.0-0.7); EOS % 2.1 % (1.5-5.0); LYMPH # 1.7 (1.2-3.4); LYMPH % 13.2 % (22.0-35.0); MEAN CELL VOLUME 91.7 fl (80.0-105.0); MEAN CORPUSCULAR HEMOGLOBIN 29.4 pg (25.0-35.0); MEAN CORPUSCULAR HGB CONC 32.1 g/dl (31.0-37.0); MEAN PLATELET VOLUME 11.2 fl (7.0-11.0); MONO # 0.8 (0.1-0.6); MONO % 5.7 % (1.0-6.0); RBC 3.74 10^6/uL (3.5-6.1); RED CELL DISTRIBUTION WIDTH 20.7 % (11.5-14.5); WHITE BLOOD COUNT 13.1 10^3/uL (4.5-11.0)
[2018-11-19 10:00] LABS: INR 1.15; PARTIAL THROMBOPLASTIN TIME 31.3 Seconds (26.9-38.3)
[2018-11-19 10:15] LABS: CALCIUM 8.2 mg/dL (8.4-10.5)
[2018-11-19] MEDS ORDERED: Iodixanol 320 MG/ML 100 ML BOTTLE IV ONE (11:17)
[2018-11-19] MEDS ORDERED: Lidocaine PF 2% (5 ml) Inj (For Cardiac Arrhy) ONE (11:17)
[2018-11-19] MEDS ORDERED: Midazolam 2 MG/2 ML VIAL ONE (13:26)
[2018-11-19 15:02] VITALS: RESP 20
[2018-11-19 15:48] VITALS: BP 117/74; PULSE 76; TEMP 98.6; O2SAT 100
--- NOTE | 2018-11-19 19:34 | VASCULAR ---
PROCEDURE: 1. Right upper extremity AV fistula angiogram 2. Venous anastomosis angioplasty HISTORY: End-stage renal disease. Malfunctioning AV access PHYSICIAN(S): Husam Brandt MD. TECHNIQUE: The relative risks and indications of the procedure were explained to the patient and consent obtained. The patient was placed supine on the angiography table and the right arm prepped and draped in usual sterile fashion. Conscious sedation and monitoring provided throughout the procedure by a nurse. There is a bovine loop graft in the right upper arm. Preliminary sonography revealed a patent arterial anastomosis. New collapse was punctured in its mid segment under ultrasound guidance with a micropuncture set. A 5 Romansh catheter was placed. Overlapping images the venous outflow were obtained. In addition reflux of the anastomosis was performed which was suboptimal. A 6 Romansh sheath was placed. The venous anastomosis was dilated with an 8 mm x 6 cm balloon. An excellent angiographic result was obtained with brisk flow. Sheath was removed hemostasis obtained with a purse string suture. The patient tolerated the procedure well. FINDINGS: The patient's right upper arm bovine loop graft is patent. The arterial anastomosis well seen on ultrasound and patent. There is a 3 cm severe stenosis at the venous anastomosis. This was successfully dilated with an 8 mm balloon. No stent was required. The central veins are widely patent. IMPRESSION: 1. Successful venous angioplasty of the venous anastomosis with an 8 mm balloon. 2. Patent right upper extremity bovine loop graft. 3. Widely patent central veins.
== END 2018-11-19 15:30 | disposition home or self-care (01) ==
LOC: SDSVAS 08:58
PROVIDERS: ATTEND Radiology Vascular & Interventional Radiology
DX: T82.318A Breakdown (mechanical) of other vascular grafts, initial encounter (principal); I12.0 Hypertensive chronic kidney disease with stage 5 chronic kidney disease or end stage renal disease; N18.6 End stage renal disease; Y83.2 Surgical operation with anastomosis, bypass or graft as the cause of abnormal reaction of the patient, or of later complication, without mention of misadventure at the time of the procedure
CPT/HCPCS: 36415; 36902; 80048; 85025; 85610; 85730; 99152; C1725; C1769; C1894; J1644; J2250; J2405; J3010; Q9967